=== PATIENT | female | born 1945 | race Caucasian/White ===

== ENCOUNTER → 2019-09-11 16:02 | Outpatient (CLI) | payer MEDICARE, OTHER, SELFPAY ==
[2016-11-29 09:13] VITALS: BMI 32.1
[2019-09-11 17:19] LABS: Absolute Lymphocyte Count 1.76 X10^3/uL (0.83-4.51); Absolute Neutrophil Count 5.4 X10^3/uL (2.0-7.7); Basophil# 0.05 X10^3/uL; Basophil% 0.6 % (0-1); Eosinophil# 0.11 X10^3/uL; Eosinophils% 1.4 % (0-5); Hematocrit 42.1 % (37-47); Hemoglobin 13.7 g/dL (12.0-15.0); Lymphocyte # 1.76 X10^3/ul (4.0); Lymphocyte % 22.2 % (19-41); Mean Corp Hgb Conc 32.5 g/dL (32-36); Mean Corpuscular Volume 82.9 fL (81-99); Mean Platelet Vol. 10.6 fl (6.2-12.0); Monocyte# 0.57 X10^3/uL; Monocyte% 7.2 % (0-10); NRBC Flagged by Analyzer 0 % (0-5); Neutrophil # 5.42 X10^3/uL (2.7-7.7); Neutrophil % 68.2 % (47-70); Platelet Count 247 K/mm3 (150-450); RBC Distribution Width CV 15.2 % (11.6-14.6); RBC Distribution Width SD 45.1 fl (35.1-43.9); Red Blood Count 5.08 M/mm3 (4.2-5.4); White Blood Count 7.9 K/mm3 (4.4-11.0)
[2019-09-11 17:44] LABS: ALB/GLOB Ratio 1.2 RATIO (0.9-2.4); AST(SGOT) 21 U/L (15-37); Alanine Aminotransfer ALT/SGPT 37 U/L (13-56); Albumin, Serum 4.1 g/dL (3.2-5.0); Alkaline Phosphatase 114 U/L (45-117); Anion Gap 7 (5-15); BUN 13 mg/dL (7-18); BUN/Creat Ratio 15.6 RATIO (10-20); Calcium,Total 8.9 mg/dL (8.5-10.1); Chloride 106 mmol/L (98-107); Creatinine, Serum 0.84 mg/dL (0.55-1.02); EST Glomerular Filtration Rate 71 mL/min (>60); Est Glom Filt Rate - Afr Amer 86 mL/min (>60); Globulin 3.5 g/dL (2.2-4.2); Glucose 118 mg/dL (74-106); Potassium 4.4 mmol/L (3.5-5.1); Protein, Total 7.6 g/dL (6.4-8.2); Sodium Level 140 mmol/L (136-145); Thyroid Stim Hormone (TSH) 2.24 uIU/mL (0.358-3.74)
[2019-09-12 09:28] LABS: Hepatitis C Antibody Non-Reactive (Nonreactive); Vitamin D,25 Hydroxy 20.1 ng/mL (29.95-100.01)
== END ==
PROVIDERS: Visit Provider Family Medicine Geriatric Medicine
DX: E55.9 Vitamin D deficiency, unspecified (principal); R53.83 Other fatigue; Z13.89 Encounter for screening for other disorder
CPT/HCPCS: 36415; 80053; 82306; 84443; 85025; 86803

== ENCOUNTER → 2019-09-18 14:42 | Outpatient (CLI) | payer MEDICARE, OTHER, SELFPAY ==
[2016-11-29 09:13] VITALS: BMI 32.1
--- NOTE | 2019-09-18 14:50 | CT_ITS ---
STUDY: CTA OF THE ABDOMINAL AORTA AND BILATERAL LOWER EXTREMITIES REASON FOR EXAM: Female, 73 years old. ANEURYSM OF SPLENIC ARTERY RADIATION DOSAGE (If Supplied By Facility): CTDIvol = ( 22.77 ) mGy, DLP = ( 657.37 ) mGycm TECHNIQUE: Axial CT angiography multi-detector data acquisition was obtained from the to the following intravenous administration of 100 CC ISOVUE 370. Axial images and MIP images were reconstructed from the axial data set. Post-processing of the angiographic images was performed, with multiplanar reformation and 3D reconstruction. Individualized dose optimization techniques were used for this CT. TECHNICAL QUALITY: Good COMPARISON: February 12, 2015 FINDINGS: The lung bases are clear. The liver is normal. No dilated intrahepatic biliary radicles. Previous cholecystectomy The spleen is normal. The pancreas is normal. Both adrenals are normal. The kidneys are normal with no masses, calculi or hydronephrosis The stomach is normal. There is no bowel distention, acute appendicitis or diverticulitis. No constricting lesions are seen in large bowel. The abdominal wall is intact with no hernias. There is no ascites or any free intraperitoneal air. No indication of epiploic appendagitis The aneurysm in the splenic hilum that measured 1.2 cm (outer wall to outer wall) in the last examination of February 12, 2015. The size has not changed since then. The aorta is visualized in its entirety and shows no focal aneurysms. Normal takeoff of the celiac axis, SMA, SHEYLA and renal arteries. There is no retrocrural, retroperitoneal or mesenteric adenopathy. There is a first-degree spondylolisthesis of L4 over L5. No fractures and the disc disease. Mild facet arthrosis at L4-5 and L5-S1. . 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 Has not changed since February 12, 2015. The aorta and its main branches are normal. No acute findings in the abdomen or pelvis. Specifically there is no acute appendicitis or diverticulitis Electronically Signed: Hesham Evans MD at 5:28 EST Tel , Service support ,
== END ==
PROVIDERS: Family Provider Family Medicine Geriatric Medicine; PCP Family Medicine Geriatric Medicine; Referring Provider Family Medicine Geriatric Medicine; Visit Provider Family Medicine Geriatric Medicine
DX: I72.8 Aneurysm of other specified arteries (principal)
CPT/HCPCS: 74175; Q9967; A4216

== ENCOUNTER → 2019-10-03 10:47 | Outpatient (CLI) | payer MEDICARE, OTHER, SELFPAY ==
--- NOTE | 2019-10-03 10:57 | BD_ITS ---
STUDY: DUAL ENERGY X-RAY ABSORPTIOMETRY / DXA REASON FOR EXAM: Female, 73 years old. 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 COMPARISON: None. FINDINGS: Lumbar Spine (L1-L4): g/cm2 (1.364) / T-score (1.6) / Z-score (3.3) Findings are suggestive of normal bone density with a low fracture risk. Left Femur Total: g/cm2 (1.012) / T-score (0.0) / Z-score (1.6) Left Femoral Neck: g/cm2 (0.936) / T-score (-0.7) / Z-score (1.0) Right Femur Total: g/cm2 (0.996) / T-score (-0.1) / Z-score (1.5) Right Femoral Neck: g/cm2 (0.869) / T-score (-1.2) / Z-score (0.6) BD/Dexa Bone Density Study IMPRESSION: The patient is considered osteopenic as outlined below according to World Bipin Organization (WHO) criteria with a low fracture risk. Reference Information: The T-score is the number of standard deviations above or below the standard which is normal for young adults at their peak bone mineral density. The World Health Organization (WHO) interprets the T-scores as follows: Above -1 Normal bone density Between -1 and -2.5 Osteopenia Equal to / or below -2.5 Osteoporosis As a practical clinical guideline, osteopenia may be graded as follows: Mild -1 through -1.5 Moderate -1.6 through -2.0 Severe -2.1 through -2.4 The Z-score is the number of standard deviations above or below age-matched controls. A Z-score of less than -1.5 would be considered abnormal. References: 1. NIH Osteoporosis and Related Bone Diseases http://www.osteo.org 2. International Society for Clinical Densitometry http://www.iscd.org 3. National Osteoporosis Foundation http://www.nof.org Electronically Signed: Omar Albrecht, at 13:28 EST , Service support ,
== END ==
PROVIDERS: PCP Family Medicine Geriatric Medicine; Referring Provider Family Medicine Geriatric Medicine; Visit Provider Family Medicine Geriatric Medicine
DX: Z78.0 Asymptomatic menopausal state (principal)
CPT/HCPCS: 77080

== ENCOUNTER 2019-10-05 07:52 | Day surgery (SDC) | payer MEDICARE, OTHER, SELFPAY ==
[2016-11-29 09:13] VITALS: BMI 32.1
--- NOTE | 2019-10-05 | COLBX_PTH ---
PATIENT: IVAN ROB LOC: EN U#:[id number] AGE/SX: 73/F ROOM: RE10/05/[address]: Dr. Boaz Nieto MD : 1945 BED: DIS: 10/05/2019 SPEC #: [id number] RECD: 10/05/19 12:18 STATUS: HEATHER BEE #: [id number] ROMAN: 10/05/19 00:[address]: Boaz Nieto DEPT: SURGICAL PATHOLOGY RECD BY: Ajit Malik ENTERED: 10/05/19 12:19 SP TYPE: COLON BX OTHR DR: Dr. Gavino Santos MD Tissues: A - Cecum, NOS B - Cecum, NOS C - Cecum, NOS D - Descending colon Procedures: Surgery Specimen Level IV HEADER OPERATION: Colonoscopy - open access (MAC) PRE-OP DIAGNOSIS: Screening TISSUE SUBMITTED: A - Biopsy of cecum polyp, B - Biopsy of second cecum polyp and polypectomy, C - Third cecum polyp, D - Descending colon polyp MICROSCOPIC DIAGNOSIS A. Cecum polyp, biopsy: Fragments of tubular adenoma. B. Biopsy of second cecum polyp and polypectomy: Fragments of tubular adenoma. C. Third cecum polyp, biopsy: Fragments of tubular adenoma. D. Descending colon polyp, biopsy: Tubular adenoma. SJ:clara 10/08/19 MICROSCOPIC DESCRIPTION Slides are reviewed. GROSS DESCRIPTION A - Received in fixative is one container labeled with the patient's name and designated biopsy of cecum polyp. The specimen consists of two irregular fragments of light padilla soft tissue that in aggregate measure 0.7 x 0.3 x 0.1 cm. The specimen is totally submitted in one cassette. B - Received in fixative is one container labeled with the patient's name and designated biopsy of second cecal polyp. The specimen consists of multiple irregular fragments of light padilla soft tissue that in aggregate measure 1 x 0.7 x 0.1 cm. The specimen is totally submitted in one cassette. C - Received in fixative is one container labeled with the patient's name and designated third cecal polyp. The specimen consists of multiple irregular fragments of light padilla soft tissue that in aggregate measure 2 x 0.6 x 0.5 cm. The specimen is totally submitted in one cassette. D - Received in fixative is one container labeled with the patient's name and designated descending colon polyp. The specimen consists of one irregular fragment of light padilla soft tissue that measures 0.5 x 0.5 x 0.1 cm. The specimen is totally submitted in one cassette. / AM:clara 10/05/19 TC:1 CPT: 17784 x4
[2019-10-05 08:04] VITALS: PULSE 97; RESP 15; TEMP 36.4; O2SAT 100; BMI 31.4
[2019-10-05] MEDS: Lactated Ringers 1,000 ML 100 ML IV (08:13)
--- NOTE | 2019-10-05 09:01 | PCM.HP.STD ---
Problem List (1) Personal history of colonic polyps Status: Acute History of Present Illness Date of Admission: 10/05/19 The patient is a 73 year old F who has had a personal history of colon polyps. Her most recent colonoscopy was March 10, 2012. She denies bright red blood per rectum or melena. She has had slight weight gain no unexpected loss. No abdominal pain. No bright red blood per rectum or melena. She is otherwise in stable health. Past Medical History Allergies codeine Allergy (Verified 10/05/19 08:00) Chest tightness latex Allergy (Verified 10/05/19 08:00) Rash prednisone Allergy (Verified 10/05/19 08:00) Unknown Home Medications: Ambulatory Orders Medication Instructions Recorded Cyanocobalamin (Vitamin B-12) 20,000 mcg SL DAILY 10/02/19 [Vitamin B-12] Doxepin HCl 50 mg PO QHS 10/02/19 Fluoxetine [Prozac] 20 mg PO DAILY 10/02/19 Magnesium Oxide [Magnesium] 400 mg PO DAILY 10/02/19 Omeprazole Magnesium [Prilosec Otc] 20 mg PO PRN PRN 10/02/19 Turmeric Root Extract [Turmeric 500 mg PO DAILY 10/02/19 Curcumin] Smoking Status: Former smoker Tobacco Use: Non-smoker Review of Systems Constitutional: Denies: Anorexia HEENT: Denies: Difficulty Swallowing Cardiovascular: Denies: Chest Pain Respiratory: Reports: - - Only mild shortness of breath on climbing stairs. Denies: Shortness of breath at rest Gastrointestinal: Denies: Abdominal Pain, Hematochezia, Melena Endocrine: Reports: - - Slight weight gain VTE Information - Inpt Only VTE Present on Admission: No Patient Problems: Active and Suspected Problems Personal history of colonic polyps (Acute) - Physical Exam Vitals/I&O's: Vital Signs Temp Pulse Resp Pulse Ox 97.5 F L 97 15 100 10/05/19 08:04 10/05/19 08:04 10/05/19 08:04 10/05/19 08:04 Oxygen Delivery Method Room Air Weight: 183 lb 3.266 oz Body Mass Index (BMI) 31.4 General: Alert, Oriented x3, Cooperative, No apparent distress HEENT: Atraumatic Oral: Moist Mucosa Lungs: Clear to auscultation, Normal air movement Cardiovascular: Regular rate, Regular Rhythm Abdomen: Bowel Sounds Present, Soft, Non Tender Psych/Mental Status: Normal Affect Current Medications Lactated Ringer's () 1,000 mls @ 100 mls/hr IV .Q10H CHERELLE Last Admin: 10/05/19 08:13 Dose: 100 mls/hr Documented by: Assessment/Plan All Active Problems Personal history of colonic polyps (Acute) 73-year-old female who presents for a surveillance colonoscopy. Previous colonoscopy was March 10, 2012. She has a previous history of colon polyps. She presents via our open access program. Plan to proceed with a colonoscopy with possible biopsy or polypectomy is indicated. Patient is aware of the technique, benefit, risks, alternatives. We will proceed as noted. Boaz Nieto M.D., F.A.C.S.
[2019-10-05 09:40] VITALS: BP 114/48; BP 174/84; PULSE 80; RESP 18; TEMP 36.4; O2SAT 96
[2019-10-05 09:45] VITALS: BP 113/53; BP 174/84; PULSE 79; RESP 16; O2SAT 98
--- NOTE | 2019-10-05 09:48 | OP.COLON_ITS ---
Patient Name: Glendy Alfaro Procedure Date: 10/05/2019 8:57 AM Date of : 1945 Age: 73 Procedure: Colonoscopy Indications: High risk colon cancer surveillance: Personal history of colonic polyps Providers: Boaz Nieto MD Referring MD: Gavino Santos MD Medicines: See the Anesthesia note for documentation of the administered medications Patient Profile: Last Colonoscopy: March 2012. Complications: No immediate complications. Procedure: Pre-Anesthesia Assessment: - Prior to the procedure, a History and Physical was performed, and patient medications and allergies were reviewed. The patient's tolerance of previous anesthesia was also reviewed. The risks and benefits of the procedure and the sedation options and risks were discussed with the patient. All questions were answered, and informed consent was obtained. Prior Anticoagulants: The patient has taken no previous anticoagulant or antiplatelet agents. ASA Grade Assessment: II - A patient with mild systemic disease. After reviewing the risks and benefits, the patient was deemed in satisfactory condition to undergo the procedure. After I obtained informed consent, the scope was passed under direct vision. Throughout the procedure, the patient's blood pressure, pulse, and oxygen saturations were monitored continuously. The pediatric colonoscope was introduced through the anus and advanced to the cecum, identified by appendiceal orifice and ileocecal valve. The colonoscopy was performed with moderate difficulty due to a redundant colon. The patient tolerated the procedure well. The quality of the bowel preparation was good. The ileocecal valve and the appendiceal orifice were photographed. Scope In: 9:09:20 AM Scope Withdrawal Time 0 hours 17 minutes 24 seconds Scope Out: 9:35:32 AM Total Procedure Duration Time 0 hours 26 minutes 12 seconds Findings: The digital rectal exam findings include non-thrombosed external hemorrhoids, non-thrombosed internal hemorrhoids and internal hemorrhoids that prolapse with straining, but require manual replacement into the anal canal (Grade III). A 13 mm polyp was found in the cecum. The polyp was sessile. Biopsies were taken with a cold forceps for histology. A 6 mm polyp was found in the cecum. The polyp was sessile. The polyp was removed with a hot snare. Resection and retrieval were complete. A 10 mm polyp was found in the cecum. The polyp was sessile. The polyp was removed with a hot snare. Polyp resection was incomplete, and the resected tissue was partially retrieved. A 6 mm polyp was found in the descending colon. The polyp was sessile. The polyp was removed with a hot snare. Resection and retrieval were complete. Multiple diverticula were found in the sigmoid colon. Impression: - Non-thrombosed external hemorrhoids, non-thrombosed internal hemorrhoids and internal hemorrhoids that prolapse with straining, but require manual replacement into the anal canal (Grade III) found on digital rectal exam. - One 13 mm polyp in the cecum. Biopsied. - One 6 mm polyp in the cecum, removed with a hot snare. Resected and retrieved. - One 10 mm polyp in the cecum, removed with a hot snare. Polyp resection was incomplete, and the resected tissue was partially retrieved. - One 6 mm polyp in the descending colon, removed with a hot snare. Resected and retrieved. - Diverticulosis in the sigmoid colon. Recommendation: - Discharge patient to home. - Resume previous diet. - Continue present medications. - Return to my office in 1 week. - Repeat colonoscopy in 3 years for surveillance based on pathology results. Procedure Code(s): --- Professional --- 19321, Colonoscopy, flexible; with removal of tumor(s), polyp(s), or other lesion(s) by snare technique 77415, 59, Colonoscopy, flexible; with biopsy, single or multiple Diagnosis Code(s): --- Professional --- Z86.010, Personal history of colonic polyps K64.2, Third degree hemorrhoids K64.4, Residual hemorrhoidal skin tags D12.0, Benign neoplasm of cecum D12.4, Benign neoplasm of descending colon K57.30, Diverticulosis of large intestine without perforation or abscess without bleeding CPT copyright 2017 [employer]. All rights reserved. The codes documented in this report are preliminary and upon fountain pen turner review may be revised to meet current compliance requirements. Boaz Nieto MD 10/05/2019 9:48:07 AM This report has been signed electronically. Number of Addenda: 0 Note Initiated On: 10/05/2019 8:57 AM
--- NOTE | 2019-10-05 09:48 | OP.CCLET_ITS ---
10/05/2019 Gavino Santos MD [address] [place] [address] Re : Colonoscopy procedure for Glendy Alfaro Dear Dr. Santos This procedure was performed on Saturday, October 05, 2019. My impressions and recommendations are as follows: Impressions : - Non-thrombosed external hemorrhoids, non-thrombosed internal hemorrhoids and internal hemorrhoids that prolapse with straining, but require manual replacement into the anal canal (Grade III) found on digital rectal exam. - One 13 mm polyp in the cecum. Biopsied. - One 6 mm polyp in the cecum, removed with a hot snare. Resected and retrieved. - One 10 mm polyp in the cecum, removed with a hot snare. Polyp resection was incomplete, and the resected tissue was partially retrieved. - One 6 mm polyp in the descending colon, removed with a hot snare. Resected and retrieved. - Diverticulosis in the sigmoid colon. Recommendations : - Discharge patient to home. - Resume previous diet. - Continue present medications. - Return to my office in 1 week. - Repeat colonoscopy in 3 years for surveillance based on pathology results. My findings are described in the full procedure note, which is enclosed. If I can be of further assistance, please feel free to contact me at Doctor phone number(s): Work: . Sincerely, Boaz Nieto MD 10/05/2019 9:48:07 AM This report has been signed electronically.
[2019-10-05 09:50] VITALS: BP 134/66; BP 174/84; PULSE 77; RESP 16; O2SAT 99
[2019-10-05 09:57] VITALS: BP 123/57; BP 174/84; PULSE 78; RESP 18; TEMP 36.6; O2SAT 100
[2019-10-05 10:30] VITALS: BP 174/84
== END 2019-10-05 10:31 | disposition home or self-care (01) ==
LOC: EN 07:53 → AC 07:54
PROVIDERS: Family Provider Family Medicine Geriatric Medicine; PCP Family Medicine Geriatric Medicine; Referring Provider Family Medicine Geriatric Medicine; Visit Provider Surgery
PROC: 0DJD8ZZ Inspection of Lower Intestinal Tract, Via Natural or Artificial Opening Endoscopic (ICD-10-PCS; CPT 45378; principal; 2019-10-05 08:55)
DX: Z12.11 Encounter for screening for malignant neoplasm of colon (principal); D12.0 Benign neoplasm of cecum; D12.4 Benign neoplasm of descending colon; K64.2 Third degree hemorrhoids; K64.4 Residual hemorrhoidal skin tags; K57.30 Diverticulosis of large intestine without perforation or abscess without bleeding; K21.9 Gastro-esophageal reflux disease without esophagitis; F32.9 Major depressive disorder, single episode, unspecified; Z86.010 Personal history of colon polyps; Z87.891 Personal history of nicotine dependence
CPT/HCPCS: 45380; 45385; 88305; J7120; J2405

== ENCOUNTER → 2020-07-03 12:08 | Outpatient (CLI) | payer MEDICARE, OTHER, SELFPAY ==
[2019-10-12 09:59] VITALS: BMI 32.5
[2020-07-03 13:28] LABS: Erythrocyte Sedimentation Rate 6 mm/hr (0-30)
[2020-07-03 13:30] LABS: Absolute Lymphocyte Count 1.56 X10^3/uL (0.83-4.51); Absolute Neutrophil Count 3.4 X10^3/uL (2.0-7.7); Basophil# 0.03 X10^3/uL; Basophil% 0.5 % (0-1); Eosinophil# 0.11 X10^3/uL; Hematocrit 39.4 % (37-47); Hemoglobin 13.6 g/dL (12.0-15.0); Lymphocyte # 1.56 X10^3/ul (4.0); Lymphocyte % 27.8 % (19-41); Mean Corp Hgb Conc 34.5 g/dL (32-36); Mean Corpuscular Hgb 28.8 pg (27.0-32.0); Mean Corpuscular Volume 83.5 fL (81-99); Mean Platelet Vol. 10.5 fl (6.2-12.0); Monocyte# 0.51 X10^3/uL; Monocyte% 9.1 % (0-10); NRBC Flagged by Analyzer 0 % (0-5); Neutrophil # 3.37 X10^3/uL (2.7-7.7); Neutrophil % 59.9 % (47-70); Platelet Count 216 K/mm3 (150-450); RBC Distribution Width CV 14.9 % (11.6-14.6); RBC Distribution Width SD 44.5 fl (35.1-43.9); Red Blood Count 4.72 M/mm3 (4.2-5.4); White Blood Count 5.6 K/mm3 (4.4-11.0)
[2020-07-03 14:06] LABS: CRP 8.85 mg/L (0.0-3.0)
== END ==
PROVIDERS: PCP Family Medicine Geriatric Medicine; Visit Provider Physician Assistant
DX: Z96.652 Presence of left artificial knee joint (principal)
CPT/HCPCS: 36415; 85025; 85652; 86140

== ENCOUNTER → 2020-08-06 09:31 | Outpatient (CLI) | payer MEDICARE, OTHER, SELFPAY ==
[2019-10-12 09:59] VITALS: BMI 32.5
[2020-08-06 12:38] LABS: Absolute Lymphocyte Count 1.47 X10^3/uL (0.83-4.51); Absolute Neutrophil Count 3.1 X10^3/uL (2.0-7.7); Basophil# 0.02 X10^3/uL; Basophil% 0.4 % (0-1); Eosinophil# 0.17 X10^3/uL; Eosinophils% 3.3 % (0-5); Hematocrit 38.2 % (37-47); Hemoglobin 12.5 g/dL (12.0-15.0); Lymphocyte # 1.47 X10^3/ul (4.0); Lymphocyte % 28.3 % (19-41); Mean Corp Hgb Conc 32.7 g/dL (32-36); Mean Corpuscular Hgb 28.5 pg (27.0-32.0); Mean Platelet Vol. 11.1 fl (6.2-12.0); Monocyte# 0.43 X10^3/uL; Monocyte% 8.3 % (0-10); NRBC Flagged by Analyzer 0 % (0-5); Neutrophil # 3.07 X10^3/uL (2.7-7.7); Neutrophil % 58.9 % (47-70); Platelet Count 212 K/mm3 (150-450); RBC Distribution Width CV 15.8 % (11.6-14.6); RBC Distribution Width SD 49.1 fl (35.1-43.9); Red Blood Count 4.39 M/mm3 (4.2-5.4); White Blood Count 5.2 K/mm3 (4.4-11.0)
[2020-08-06 13:00] LABS: Vitamin D,25 Hydroxy 32.9 ng/mL
[2020-08-06 13:22] LABS: ALB/GLOB Ratio 1.3 RATIO (0.9-2.4); AST(SGOT) 23 U/L (15-37); Alanine Aminotransfer ALT/SGPT 48 U/L (13-56); Albumin, Serum 3.9 g/dL (3.2-5.0); Alkaline Phosphatase 110 U/L (45-117); Anion Gap 7 (5-15); BUN 19 mg/dL (7-18); BUN/Creat Ratio 20.9 RATIO (10-20); Calcium,Total 8.8 mg/dL (8.5-10.1); Chloride 110 mmol/L (98-107); Creatinine, Serum 0.91 mg/dL (0.55-1.02); EST Glomerular Filtration Rate 64 mL/min (>60); Est Glom Filt Rate - Afr Amer 78 mL/min (>60); Globulin 3.1 g/dL (2.2-4.2); Glucose 113 mg/dL (74-106); Potassium 3.9 mmol/L (3.5-5.1); Sodium Level 143 mmol/L (136-145); Thyroid Stim Hormone (TSH) 3.02 uIU/mL (0.358-3.74)
== END ==
PROVIDERS: PCP Family Medicine Geriatric Medicine; Visit Provider Family Medicine Geriatric Medicine
DX: E55.9 Vitamin D deficiency, unspecified (principal); R53.83 Other fatigue
CPT/HCPCS: 36415; 80053; 82306; 84443; 85025

== ENCOUNTER → 2020-09-15 09:07 | Outpatient (CLI) | payer MEDICARE, OTHER, SELFPAY ==
[2019-10-12 09:59] VITALS: BMI 32.5
[2020-09-15 11:55] LABS: Absolute Lymphocyte Count 1.61 X10^3/uL (0.83-4.51); Absolute Neutrophil Count 4.1 X10^3/uL (2.0-7.7); Basophil# 0.01 X10^3/uL; Basophil% 0.2 % (0-1); Eosinophils% 1.6 % (0-5); Hematocrit 39.2 % (37-47); Hemoglobin 13.1 g/dL (12.0-15.0); Lymphocyte # 1.61 X10^3/ul (4.0); Lymphocyte % 25.7 % (19-41); Mean Corp Hgb Conc 33.4 g/dL (32-36); Mean Corpuscular Hgb 27.6 pg (27.0-32.0); Mean Corpuscular Volume 82.5 fL (81-99); Mean Platelet Vol. 10.2 fl (6.2-12.0); Monocyte# 0.47 X10^3/uL; Monocyte% 7.5 % (0-10); NRBC Flagged by Analyzer 0 % (0-5); Neutrophil # 4.06 X10^3/uL (2.7-7.7); Neutrophil % 64.7 % (47-70); Platelet Count 223 K/mm3 (150-450); RBC Distribution Width SD 44.7 fl (35.1-43.9); Red Blood Count 4.75 M/mm3 (4.2-5.4); White Blood Count 6.3 K/mm3 (4.4-11.0)
[2020-09-15 12:19] LABS: ALB/GLOB Ratio 1.2 RATIO (0.9-2.4); AST(SGOT) 11 U/L (15-37); Alanine Aminotransfer ALT/SGPT 31 U/L (13-56); Alkaline Phosphatase 104 U/L (45-117); Anion Gap 6 (5-15); BUN 13 mg/dL (7-18); BUN/Creat Ratio 15.3 RATIO (10-20); Calcium,Total 8.9 mg/dL (8.5-10.1); Chloride 112 mmol/L (98-107); Creatinine, Serum 0.85 mg/dL (0.55-1.02); EST Glomerular Filtration Rate 70 mL/min (>60); Est Glom Filt Rate - Afr Amer 85 mL/min (>60); Globulin 3.2 g/dL (2.2-4.2); Glucose 114 mg/dL (74-106); Potassium 3.8 mmol/L (3.5-5.1); Protein, Total 7.2 g/dL (6.4-8.2); Sodium Level 142 mmol/L (136-145); Thyroid Stim Hormone (TSH) 2.73 uIU/mL (0.358-3.74)
[2020-09-15 13:31] LABS: Vitamin D,25 Hydroxy 22.7 ng/mL
== END ==
PROVIDERS: PCP Family Medicine Geriatric Medicine; Visit Provider Family Medicine Geriatric Medicine
DX: I10 Essential (primary) hypertension (principal); E55.9 Vitamin D deficiency, unspecified
CPT/HCPCS: 36415; 80053; 82306; 84443; 85025

== ENCOUNTER → 2020-09-18 07:57 | Outpatient (CLI) | payer MEDICARE, OTHER, SELFPAY ==
[2019-10-12 09:59] VITALS: BMI 32.5
--- NOTE | 2020-09-18 08:10 | CT_ITS ---
STUDY: CTA OF THE ABDOMINAL AORTA AND VISCERAL BRANCHES. REASON FOR EXAM: Female, 74 years old. Splenic artery aneurysm follow up RADIATION DOSAGE (If Supplied By Facility): CTDIvol = ( 16.93 ) mGy, DLP = ( 806.04 ) mGycm TECHNIQUE: Axial CT angiography multi-detector data acquisition was obtained from the to the following intravenous administration of IV 100mL Isovue-370. Axial images and MIP images were reconstructed from the axial data set. Post-processing of the angiographic images was performed, with multiplanar reformation and 3D reconstruction. Individualized dose optimization techniques were used for this CT. TECHNICAL QUALITY: Good COMPARISON: Comparison is made with prior examination dated 09/18/2019. Descriptors of Narrowing: None (0%) Mild (< 50%) Moderate (50-70%) Severe (70-90%) Subtotal/Total Occlusion (90-100%) Non-Evaluable (technically non-diagnostic FINDINGS: Small right pleural effusion. Diffuse fatty infiltration of the liver. The patient is status post cholecystectomy. Stable appearance of the 1.2 cm calcified splenic artery aneurysm in the region of the splenic hilum. Abdominal aorta: No demonstrated narrowing. Minimal atherosclerotic plaque. Celiac and superior mesenteric arteries: No demonstrated narrowing. Inferior mesenteric artery: No demonstrated narrowing. Right renal artery(arteries): No demonstrated narrowing. Left renal artery(arteries): No demonstrated narrowing. Right common iliac artery: No demonstrated narrowing. Minimal nonstenotic calcified atherosclerotic plaques. Right external iliac artery: No demonstrated narrowing. Right internal iliac artery: No demonstrated narrowing. Left common iliac artery: No demonstrated narrowing. Left external iliac artery: No demonstrated narrowing. Left internal iliac artery: No demonstrated narrowing. CT/CTA Abdomen W/WO Contrast IMPRESSION: Stable 1.2 cm partially calcified splenic artery aneurysm. Electronically Signed: Omar Albrecth, at 9:38 EST , Service support ,
== END ==
PROVIDERS: PCP Family Medicine Geriatric Medicine; Referring Provider Family Medicine Geriatric Medicine; Visit Provider Family Medicine Geriatric Medicine
DX: I72.8 Aneurysm of other specified arteries (principal)
CPT/HCPCS: 74175; Q9967

== ENCOUNTER → 2020-10-30 11:58 | Outpatient (CLI) | payer MEDICARE, OTHER, SELFPAY ==
[2020-10-30 10:00] VITALS: BMI 35.2
--- NOTE | 2020-10-30 12:25 | RAD_ITS ---
STUDY: X-RAY - LUMBAR SPINE REASON FOR EXAM: Female, 75 years old. LOW BACK PAIN, SPASMS TECHNIQUE: 3 view(s) of the lumbar spine were obtained. COMPARISON: None FINDINGS: Normal lumbar lordosis. There is no substantial scoliosis. Minimal anterolisthesis of L4 on L5 secondary to facet joint osteoarthritis. There is multilevel endplate spondylosis of the lumbar vertebrae. There is multi-level degenerative disc disease with multi-level disc space narrowing. Moderate amount of fecal material is seen in the colon. RAD/Lumbar Spine 2 or 3 Views IMPRESSION: Degenerative changes of the spine, as detailed above. Electronically Signed: Omar Albrecht MD at 13:15 EST , Service support ,
[2020-10-30 12:29] LABS: Absolute Lymphocyte Count 1.66 X10^3/uL (0.83-4.51); Absolute Neutrophil Count 4.5 X10^3/uL (2.0-7.7); Basophil# 0.04 X10^3/uL; Basophil% 0.6 % (0-1); Eosinophil# 0.11 X10^3/uL; Eosinophils% 1.6 % (0-5); Hematocrit 40.4 % (37-47); Hemoglobin 13.4 g/dL (12.0-15.0); Lymphocyte # 1.66 X10^3/ul (4.0); Lymphocyte % 24.1 % (19-41); Mean Corp Hgb Conc 33.2 g/dL (32-36); Mean Corpuscular Volume 84.5 fL (81-99); Mean Platelet Vol. 10.1 fl (6.2-12.0); Monocyte# 0.56 X10^3/uL; Monocyte% 8.1 % (0-10); NRBC Flagged by Analyzer 0 % (0-5); Neutrophil # 4.49 X10^3/uL (2.7-7.7); Neutrophil % 65.2 % (47-70); Platelet Count 236 K/mm3 (150-450); RBC Distribution Width CV 15.3 % (11.6-14.6); RBC Distribution Width SD 46.2 fl (35.1-43.9); Red Blood Count 4.78 M/mm3 (4.2-5.4); White Blood Count 6.9 K/mm3 (4.4-11.0)
[2020-10-30 12:43] LABS: Anion Gap 6 (5-15); BUN 13 mg/dL (7-18); BUN/Creat Ratio 14.9 RATIO (10-20); Calcium,Total 9.3 mg/dL (8.5-10.1); Chloride 110 mmol/L (98-107); Creatinine, Serum 0.87 mg/dL (0.55-1.02); EST Glomerular Filtration Rate 68 mL/min (>60); Est Glom Filt Rate - Afr Amer 82 mL/min (>60); Glucose 90 mg/dL (74-106); Potassium 4.1 mmol/L (3.5-5.1); Sodium Level 141 mmol/L (136-145)
== END ==
PROVIDERS: PCP Family Medicine Geriatric Medicine; Visit Provider Family Medicine Geriatric Medicine
DX: R10.30 Lower abdominal pain, unspecified (principal); M47.816 Spondylosis without myelopathy or radiculopathy, lumbar region; M51.36 Other intervertebral disc degeneration, lumbar region; M48.061 Spinal stenosis, lumbar region without neurogenic claudication
CPT/HCPCS: 36415; 72100; 80048; 85025

== ENCOUNTER → 2020-11-11 08:18 | Outpatient (CLI) | payer MEDICARE, OTHER, SELFPAY ==
[2020-10-30 10:00] VITALS: BMI 35.2
--- NOTE | 2020-11-11 08:21 | US_ITS ---
STUDY: ABDOMINAL ULTRASOUND - RIGHT UPPER QUADRANT REASON FOR VISIT: Female, 75 years old NON ALCOHOLIC FATTY LIVER TECHNIQUE: Ultrasound evaluation of the right upper quadrant was performed with real-time and static linares-scale imaging. TECHNICAL QUALITY: Adequate. COMPARISON: None. FINDINGS: Liver: The liver measures 14.7 cm. There is increased echogenicity consistent with fatty infiltration. The bile ducts are within normal limits. There is hepatic color flow. The direction of portal flow is hepatopetal. There is no demonstrated mass lesion. Gallbladder: The patient is status post cholecystectomy.. Common Bile Duct (C.B.D.): The common bile duct measures 5 mm. Pancreas: Normal size of the head, body and tail of the pancreas. There is normal echogenicity of the pancreas. There is no demonstrated pancreatic mass or cyst. Right Kidney: Normal size of the right kidney. The right kidney measures 11.7 cm. Normal renal cortex. The right cortex measures 1.6 cm. There is no demonstrated renal mass or cyst. There is no right hydronephrosis. US/Abdomen Limited IMPRESSION: Status post cholecystectomy with fatty infiltration of the liver. Electronically Signed: Michael Mendieta MD at 9:52 EST Tel , Service support ,
--- NOTE | 2020-11-11 08:21 | US_ITS ---
STUDY: ABDOMINAL ULTRASOUND - ELASTOGRAPHY REASON FOR VISIT: Female, 75 years old. Nonalcoholic fatty infiltration of the liver. TECHNIQUE: Liver stiffness measurements were obtained on a [employer] RS 85 ultrasound machine using a CA 1-7 probe following the SRU guidelines. 3 measurements were obtained using a 2-D-SWE method. The IQR/M was 22% suggesting a quality data set. TECHNICAL QUALITY: Adequate. COMPARISON: Comparison is made with prior examination dated 11/11/2020. FINDINGS: Liver: Fatty infiltration of the liver. Median liver stiffness measured 5.3 kPa. US/Elastography Parenchyma/Organ IMPRESSION: Liver stiffness measures 5.3 kPa compatible with F0 -- F1 Metavir score. Electronically Signed: Omar Albrecht MD at 8:39 EDT , Service support ,
--- NOTE | 2020-11-11 15:10 | RAD_ITS ---
STUDY: X-RAY CHEST REASON FOR EXAM: Female, 75 years old. sob X FEW MONTHS TECHNIQUE: PA and lateral views of the chest. COMPARISON: None. FINDINGS: Status post anterior cervical discectomy and fusion lower cervical spine. The lungs are clear and expanded. Elevated right hemidiaphragm. Normal size heart. Normal mediastinum and francine. Normal visualized pulmonary arteries. Normal visualized aortic arch and descending thoracic aorta. Normal visualized thoracic spine. Normal visualized ribs, clavicles, and shoulders. There is no demonstrated abnormality of the visualized soft tissue structures of the upper abdomen. RAD/Chest PA and Lateral IMPRESSION: Normal x-ray examination of the chest. Electronically Signed: Michael Mendieta MD at 15:28 EST Tel , Service support ,
[2020-11-11 16:22] LABS: BNP,B-Type NATRIURETIC PEPTIDE 27.4 pg/mL (0-100)
== END ==
PROVIDERS: Internal Medicine Cardiovascular Disease; PCP Family Medicine Geriatric Medicine; Referring Provider Family Medicine Geriatric Medicine; Visit Provider Family Medicine Geriatric Medicine
DX: K76.0 Fatty (change of) liver, not elsewhere classified (principal); R06.02 Shortness of breath; R06.00 Dyspnea, unspecified
CPT/HCPCS: 36415; 71046; 76705; 76981; 83880

== ENCOUNTER → 2020-11-13 12:56 | Outpatient (CLI) | payer MEDICARE, OTHER, SELFPAY ==
[2020-11-11 13:38] VITALS: BMI 35.2
--- NOTE | 2020-11-13 12:57 | ECHOD_ITS ---
Reason For Study: DYSPNEA/SOB Procedure This was a 2D Doppler, Color Flow transthoracic echocardiogram. Exam performed in department. Left Ventricle Normal LV size. Left ventricular systolic function is normal. The estimated ejection fraction is 65 %. Stage 1 diastolic dysfunction. No regional wall motion abnormalities noted. Right Ventricle Normal RV size. Normal systolic function. Atria Normal left atrium. Mitral Valve Normal mitral valve. Tricuspid Valve Normal tricuspid valve. Aortic Valve The aortic valve is not well visualized. Pulmonic Valve The pulmonic valve is not well visualized. Great Vessels Normal aortic root. The pulmonary artery is normal size. Normal inferior vena cava. Pericardium/Pleural No pericardial effusion. MMode/2D Measurements & Calculations LVIDd: 4.8 cm IVSd: 1.0 cm Ao root diam: 2.6 cm LVIDs: 3.4 cm LVPWd: 1.0 cm RVDd: 2.7 cm FS: 28.3 % LAV(MOD-bp): 41.1 ml LVAd ap4: 20.0 cm2 SV(MOD-sp4): 31.5 ml LAV(MOD-bp) Indexed: 20.8 ml/m2 EDV(MOD-sp4): 46.8 ml LAV(MOD-sp2): 40.5 ml EDV(sp4-el): 47.7 ml LAV(MOD-sp4): 37.6 ml LVAs ap4: 10.3 cm2 ESV(MOD-sp4): 15.3 ml ESV(sp4-el): 15.5 ml EF(MOD-sp4): 67.3 % EF(sp4-el): 67.6 % SV(sp4-el): 32.3 ml LA A4 area: 14.7 cm2 LA dimension(2D): 4.4 cm RA A4 area: 12.0 cm2 Time Measurements MV dec time: 0.24 sec Doppler Measurements & Calculations MV E max adi: 105.2 cm/sec Lat Peak E' Adi: 6.4 cm/sec Med Peak E' Adi: 9.4 cm/sec MV A max adi: 117.1 cm/sec E/E' lat: 16.5 E/E' med: 11.2 MV E/A: 0.90 Ao V2 max: 167.1 cm/sec LV V1 max: 147.7 cm/sec PA V2 max: 131.0 cm/sec Ao max P.2 mmHg LV V1 max P.7 mmHg Interpretation Summary Normal LV size. Left ventricular systolic function is normal. The estimated ejection fraction is 65 %. Stage 1 diastolic dysfunction. Contrast injection was performed. Ordering Physician: Saleem Santos Referring Physician: Gavino Santos Chi Performed By: Jos, Ayanna, RDCS, RVT
== END ==
PROVIDERS: PCP Family Medicine Geriatric Medicine; Visit Provider Internal Medicine Cardiovascular Disease
DX: I49.1 Atrial premature depolarization (principal)
CPT/HCPCS: 93306

== ENCOUNTER → 2021-03-16 10:24 | Outpatient (CLI) | payer MEDICARE, OTHER, SELFPAY ==
[2021-02-11 09:36] VITALS: BMI 36.0
[2021-03-16 12:16] LABS: Absolute Lymphocyte Count 1.52 X10^3/uL (0.83-4.51); Absolute Neutrophil Count 3.6 X10^3/uL (2.0-7.7); Basophil# 0.03 X10^3/uL; Basophil% 0.5 % (0-1); Eosinophils% 1.7 % (0-5); Hematocrit 40.5 % (37-47); Hemoglobin 13.4 g/dL (12.0-15.0); Lymphocyte # 1.52 X10^3/ul (0.83-4.51); Lymphocyte % 26.2 % (19-41); Mean Corp Hgb Conc 33.1 g/dL (32-36); Mean Corpuscular Hgb 28.2 pg (27.0-32.0); Mean Corpuscular Volume 85.1 fL (81-99); Mean Platelet Vol. 10.5 fl (6.2-12.0); Monocyte# 0.51 X10^3/uL; Monocyte% 8.8 % (0-10); NRBC Flagged by Analyzer 0 % (0-5); Neutrophil # 3.58 X10^3/uL (2.7-7.7); Neutrophil % 61.8 % (47-70); Platelet Count 233 K/mm3 (150-450); RBC Distribution Width CV 14.6 % (11.6-14.6); RBC Distribution Width SD 44.7 fl (35.1-43.9); Red Blood Count 4.76 M/mm3 (4.2-5.4); White Blood Count 5.8 K/mm3 (4.4-11.0)
[2021-03-16 12:41] LABS: ALB/GLOB Ratio 1.1 RATIO (0.9-2.4); AST(SGOT) 23 U/L (15-37); Alanine Aminotransfer ALT/SGPT 40 U/L (13-56); Albumin, Serum 3.7 g/dL (3.2-5.0); Alkaline Phosphatase 118 U/L (45-117); Anion Gap 8 (5-15); BUN 14 mg/dL (7-18); BUN/Creat Ratio 15.9 RATIO (10-20); Calcium,Total 8.8 mg/dL (8.5-10.1); Chloride 108 mmol/L (98-107); Creatinine, Serum 0.88 mg/dL (0.55-1.02); EST Glomerular Filtration Rate 67 mL/min (>60); Est Glom Filt Rate - Afr Amer 81 mL/min (>60); Globulin 3.4 g/dL (2.2-4.2); Glucose 147 mg/dL (74-106); Potassium 3.6 mmol/L (3.5-5.1); Protein, Total 7.1 g/dL (6.4-8.2); Sodium Level 140 mmol/L (136-145); Thyroid Stim Hormone (TSH) 3.19 uIU/mL (0.358-3.74)
[2021-03-16 15:45] LABS: Vitamin D,25 Hydroxy 25.8 ng/mL
== END ==
PROVIDERS: PCP Family Medicine Geriatric Medicine; Visit Provider Family Medicine Geriatric Medicine
DX: E55.9 Vitamin D deficiency, unspecified (principal); I10 Essential (primary) hypertension
CPT/HCPCS: 36415; 80053; 82306; 84443; 85025

== ENCOUNTER → 2021-05-20 11:31 | Outpatient (CLI) | payer MEDICARE, OTHER, SELFPAY ==
[2021-05-20 13:12] LABS: Absolute Lymphocyte Count 1.52 X10^3/uL (0.83-4.51); Absolute Neutrophil Count 4.3 X10^3/uL (2.0-7.7); Basophil# 0.03 X10^3/uL; Basophil% 0.5 % (0-1); Eosinophil# 0.11 X10^3/uL; Eosinophils% 1.7 % (0-5); Hematocrit 40.3 % (37-47); Hemoglobin 12.9 g/dL (12.0-15.0); Lymphocyte # 1.52 X10^3/ul (0.83-4.51); Lymphocyte % 23.3 % (19-41); Mean Corpuscular Hgb 27.9 pg (27.0-32.0); Mean Platelet Vol. 10.9 fl (6.2-12.0); Monocyte# 0.53 X10^3/uL; Monocyte% 8.1 % (0-10); NRBC Flagged by Analyzer 0 % (0-5); Neutrophil # 4.27 X10^3/uL (2.7-7.7); Neutrophil % 65.6 % (47-70); Platelet Count 240 K/mm3 (150-450); RBC Distribution Width CV 15.9 % (11.6-14.6); RBC Distribution Width SD 50.3 fl (35.1-43.9); Red Blood Count 4.63 M/mm3 (4.2-5.4); White Blood Count 6.5 K/mm3 (4.4-11.0)
[2021-05-20 13:44] LABS: International Normalized Ratio 1.1; Prothrombin Time (Protime)PT. 13.2 SECONDS (11.7-14.9)
[2021-05-20 13:45] LABS: Partial Thromboplast Time 29.2 Seconds (24.1-36.2)
[2021-05-20 13:59] LABS: Hemoglobin A1c 4.7 % (3.8-5.6)
[2021-05-20 14:06] LABS: Vitamin B12 594 pg/mL (211-911); Vitamin D,25 Hydroxy 60.3 ng/mL
[2021-05-20 14:25] LABS: ALB/GLOB Ratio 1.1 RATIO (0.9-2.4); AST(SGOT) 33 U/L (15-37); Alanine Aminotransfer ALT/SGPT 45 U/L (13-56); Albumin, Serum 3.7 g/dL (3.2-5.0); Alkaline Phosphatase 126 U/L (45-117); Anion Gap 6 (5-15); BUN 19 mg/dL (7-18); Calcium,Total 9.1 mg/dL (8.5-10.1); Chloride 108 mmol/L (98-107); Cholesterol 201 mg/dL (200); Creatinine, Serum 0.83 mg/dL (0.55-1.02); EST Glomerular Filtration Rate 72 mL/min (>60); Est Glom Filt Rate - Afr Amer 87 mL/min (>60); Ferritin 160 ng/mL (8-252); Globulin 3.4 g/dL (2.2-4.2); Glucose 98 mg/dL (74-106); High Density Lipoprotein 46 mg/dL; Iron 54 ug/dL (50-170); Potassium 4.1 mmol/L (3.5-5.1); Protein, Total 7.1 g/dL (6.4-8.2); Sodium Level 140 mmol/L (136-145); Thyroid Stim Hormone (TSH) 3.62 uIU/mL (0.358-3.74); Triglycerides 205 mg/dL; Very Low Density Lipoprotein 41 mg/dL (5-40)
[2021-05-27 09:09] LABS: Vitamin B1, Thiamine 128.9 nmol/L (66.5-200.0)
[2021-05-27 12:20] LABS: H. PYLORI STOOL AG Negative (Negative)
== END ==
PROVIDERS: PCP Family Medicine Geriatric Medicine
DX: E61.1 Iron deficiency (principal); E78.5 Hyperlipidemia, unspecified; E55.9 Vitamin D deficiency, unspecified; E51.9 Thiamine deficiency, unspecified; R73.9 Hyperglycemia, unspecified; R79.1 Abnormal coagulation profile
CPT/HCPCS: 36415; 80053; 80061; 82306; 82607; 82728; 83036; 83540; 84425; 84439; 84443; 85025; 85610; 85730

== ENCOUNTER → 2021-06-18 20:00 | Outpatient (CLI) | payer MEDICARE, OTHER, SELFPAY | PROVIDERS: PCP Family Medicine Geriatric Medicine | DX: G47.33 Obstructive sleep apnea (adult) (pediatric) (principal) | CPT/HCPCS: 95811 ==

== ENCOUNTER 2021-09-16 09:14 | Outpatient (CLI) | payer MEDICARE, OTHER, SELFPAY ==
[2021-09-16 12:39] LABS: Absolute Lymphocyte Count 1.52 X10^3/uL (0.83-4.51); Absolute Neutrophil Count 3.2 X10^3/uL (2.0-7.7); Basophil# 0.03 X10^3/uL; Basophil% 0.6 % (0-1); Eosinophil# 0.13 X10^3/uL; Eosinophils% 2.4 % (0-5); Hematocrit 40.2 % (37-47); Hemoglobin 12.8 g/dL (12.0-15.0); Lymphocyte # 1.52 X10^3/ul (0.83-4.51); Lymphocyte % 27.9 % (19-41); Mean Corp Hgb Conc 31.8 g/dL (32-36); Mean Corpuscular Hgb 26.8 pg (27.0-32.0); Mean Corpuscular Volume 84.1 fL (81-99); Mean Platelet Vol. 12.2 fl (6.2-12.0); Monocyte# 0.54 X10^3/uL; Monocyte% 9.9 % (0-10); NRBC Flagged by Analyzer 0 % (0-5); Neutrophil # 3.22 X10^3/uL (2.7-7.7); Platelet Count 263 K/mm3 (150-450); RBC Distribution Width CV 17.2 % (11.6-14.6); RBC Distribution Width SD 52.5 fl (35.1-43.9); Red Blood Count 4.78 M/mm3 (4.2-5.4); White Blood Count 5.5 K/mm3 (4.4-11.0)
[2021-09-16 13:01] LABS: ALB/GLOB Ratio 1.2 RATIO (0.9-2.4); AST(SGOT) 22 U/L (15-37); Alanine Aminotransfer ALT/SGPT 35 U/L (13-56); Albumin, Serum 3.9 g/dL (3.2-5.0); Alkaline Phosphatase 126 U/L (45-117); Anion Gap 6 (5-15); BUN 13 mg/dL (7-18); BUN/Creat Ratio 16.9 RATIO (10-20); Calcium,Total 9.1 mg/dL (8.5-10.1); Chloride 111 mmol/L (98-107); Creatinine, Serum 0.77 mg/dL (0.55-1.02); EST Glomerular Filtration Rate 78 mL/min (>60); Est Glom Filt Rate - Afr Amer 94 mL/min (>60); Globulin 3.2 g/dL (2.2-4.2); Glucose 95 mg/dL (74-106); Potassium 3.7 mmol/L (3.5-5.1); Protein, Total 7.1 g/dL (6.4-8.2); Sodium Level 143 mmol/L (136-145); Thyroid Stim Hormone (TSH) 2.71 uIU/mL (0.358-3.74)
== END 2021-09-16 23:59 | disposition short-term general hospital (02) ==
LOC: POLAB3 09:16
PROVIDERS: PCP Family Medicine Geriatric Medicine; Visit Provider Family Medicine Geriatric Medicine
DX: E55.9 Vitamin D deficiency, unspecified (principal); I10 Essential (primary) hypertension
CPT/HCPCS: 36415; 80053; 82306; 84443; 85025

== ENCOUNTER → 2022-02-10 | Outpatient (CLI) | payer MEDICARE, OTHER, SELFPAY ==
[2022-02-10 12:31] LABS: ALB/GLOB Ratio 1.1 RATIO (0.9-2.4); AST(SGOT) 94 U/L (15-37); Alanine Aminotransfer ALT/SGPT 208 U/L (13-56); Albumin, Serum 3.6 g/dL (3.2-5.0); Alkaline Phosphatase 237 U/L (45-117); Anion Gap 5 (5-15); BUN 17 mg/dL (7-18); BUN/Creat Ratio 26.8 RATIO (10-20); Chloride 108 mmol/L (98-107); Creatinine, Serum 0.63 mg/dL (0.55-1.02); EST Glomerular Filtration Rate 97 mL/min (>60); Est Glom Filt Rate - Afr Amer 118 mL/min (>60); Globulin 3.3 g/dL (2.2-4.2); Glucose 95 mg/dL (74-106); Potassium 4.2 mmol/L (3.5-5.1); Protein, Total 6.9 g/dL (6.4-8.2); Sodium Level 139 mmol/L (136-145)
[2022-02-10 13:10] LABS: Hepatitis B Surface Antibody Non-Reactive; Hepatitis C Antibody Non-Reactive (Nonreactive)
[2022-02-11 11:08] LABS: Hepatitis A AB, Total Negative (Negative)
== END | disposition home or self-care (01) ==
LOC: POLAB3 11:26
PROVIDERS: PCP Family Medicine Geriatric Medicine; Visit Provider Family Medicine Geriatric Medicine
DX: R74.8 Abnormal levels of other serum enzymes (principal)
CPT/HCPCS: 36415; 80053; 86706; 86708; 86803

== ENCOUNTER → 2022-02-17 | Outpatient (CLI) | payer MEDICARE, OTHER, SELFPAY ==
--- NOTE | 2022-02-17 09:18 | EKG12_ITS ---
Test Reason : PRE OP Blood Pressure : / mmHG Vent. Rate : 083 BPM Atrial Rate : 083 BPM P-R Int : 138 ms QRS Dur : 068 ms QT Int : 366 ms P-R-T Axes : 000 -01 037 degrees QTc Int : 430 ms Normal sinus rhythm Normal ECG Confirmed by JOSEPHINE BLUM, VITOR ([id number]), web editor JOAQUIN BONILLA ([id number]) on 02/18/2022 10:17:36 AM Referred By: Delvis Brandt Confirmed By:VITOR BURTON MD
[2022-02-17 10:30] LABS: Hematocrit 40.1 % (37-47); Hemoglobin 13.7 g/dL (12.0-15.0); Mean Corp Hgb Conc 34.2 g/dL (32-36); Mean Corpuscular Hgb 29.8 pg (27.0-32.0); Mean Corpuscular Volume 87.4 fL (81-99); Mean Platelet Vol. 10.5 fl (6.2-12.0); Platelet Count 277 K/mm3 (150-450); RBC Distribution Width CV 15.4 % (11.6-14.6); RBC Distribution Width SD 48.2 fl (35.1-43.9); Red Blood Count 4.59 M/mm3 (4.2-5.4); White Blood Count 7.4 K/mm3 (4.4-11.0)
[2022-02-17 10:59] LABS: Anion Gap 4 (5-15); BUN 15 mg/dL (7-18); BUN/Creat Ratio 24.5 RATIO (10-20); Calcium,Total 8.9 mg/dL (8.5-10.1); Chloride 106 mmol/L (98-107); Creatinine, Serum 0.61 mg/dL (0.55-1.02); EST Glomerular Filtration Rate 102 mL/min (>60); Est Glom Filt Rate - Afr Amer 123 mL/min (>60); Glucose 91 mg/dL (74-106); Potassium 3.9 mmol/L (3.5-5.1); Sodium Level 140 mmol/L (136-145)
== END | disposition home or self-care (01) ==
PROVIDERS: PCP Family Medicine Geriatric Medicine; Referring Provider Orthopaedic Surgery; Visit Provider Orthopaedic Surgery
DX: Z01.810 Encounter for preprocedural cardiovascular examination (principal)
CPT/HCPCS: 36415; 80048; 85027; 93005

== ENCOUNTER → 2022-02-23 | Outpatient (CLI) | payer MEDICARE, OTHER, SELFPAY ==
--- NOTE | 2022-02-23 08:24 | US_ITS ---
STUDY: ABDOMINAL ULTRASOUND - RIGHT UPPER QUADRANT REASON FOR VISIT: Female, 76 years old. ABDOMEN PAIN ALT -- ABNORMAL LABS TECHNIQUE: Ultrasound evaluation of the right upper quadrant was performed with real-time and static linares-scale imaging. TECHNICAL QUALITY: Adequate. COMPARISON: None. FINDINGS: Liver: There is normal echogenicity of the liver. The bile ducts are within normal limits. There is hepatic color flow. The direction of portal flow is hepatopetal. There is no demonstrated mass lesion. Gallbladder: The patient is status post cholecystectomy. Common Bile Duct (C.B.D.): The common bile duct measures ( in mm): 3.8 Pancreas: Normal size of the head, body of the pancreas. There is normal echogenicity of the pancreas. There is no demonstrated pancreatic mass or cyst. Right Kidney: Normal size of the right kidney. The right kidney measures 10.1 cm. . Normal renal cortex. There is no demonstrated renal mass or cyst. There is no right hydronephrosis. Aorta: It is not visualized. There is too much overlying bowel gas. . US/Abdomen Limited IMPRESSION: No acute findings. Note: Renal size measurements and size measurements of other organs etc may vary depending on modality and explosives mixer operator dependent variations in measurements. (i.e. Measuring a kidney on an US does not correlate with an exact same measurement on a CT.) Electronically Signed: Edward Sommers MD at 16:39 EDT ,
== END | disposition home or self-care (01) ==
LOC: US 08:23
PROVIDERS: PCP Family Medicine Geriatric Medicine; Referring Provider Family Medicine Geriatric Medicine; Visit Provider Family Medicine Geriatric Medicine
DX: R74.8 Abnormal levels of other serum enzymes (principal)
CPT/HCPCS: 76705

== ENCOUNTER → 2022-03-15 | Outpatient (CLI) | payer MEDICARE, OTHER, SELFPAY ==
[2022-03-15 13:01] LABS: ALB/GLOB Ratio 1.1 RATIO (0.9-2.4); AST(SGOT) 28 U/L (15-37); Alanine Aminotransfer ALT/SGPT 85 U/L (13-56); Albumin, Serum 3.5 g/dL (3.2-5.0); Alkaline Phosphatase 185 U/L (45-117); Anion Gap 8 (5-15); BUN 17 mg/dL (7-18); BUN/Creat Ratio 24.8 RATIO (10-20); Calcium,Total 8.7 mg/dL (8.5-10.1); Chloride 106 mmol/L (98-107); Creatinine, Serum 0.69 mg/dL (0.55-1.02); EST Glomerular Filtration Rate 89 mL/min (>60); Est Glom Filt Rate - Afr Amer 108 mL/min (>60); Globulin 3.1 g/dL (2.2-4.2); Glucose 84 mg/dL (74-106); Protein, Total 6.6 g/dL (6.4-8.2); Sodium Level 140 mmol/L (136-145)
== END | disposition home or self-care (01) ==
LOC: POLAB3 11:15
PROVIDERS: PCP Family Medicine Geriatric Medicine; Visit Provider Family Medicine Geriatric Medicine
DX: R74.8 Abnormal levels of other serum enzymes (principal)
CPT/HCPCS: 36415; 80053

== ENCOUNTER → 2022-03-17 | Outpatient (CLI) | payer MEDICARE, OTHER, SELFPAY ==
[2022-03-17 12:29] LABS: Absolute Lymphocyte Count 1.62 X10^3/uL (0.83-4.51); Absolute Neutrophil Count 5.2 X10^3/uL (2.0-7.7); Basophil# 0.02 X10^3/uL; Basophil% 0.3 % (0-1); Eosinophil# 0.13 X10^3/uL; Eosinophils% 1.7 % (0-5); Hematocrit 38.1 % (37-47); Hemoglobin 12.9 g/dL (12.0-15.0); Lymphocyte # 1.62 X10^3/ul (0.83-4.51); Lymphocyte % 21.2 % (19-41); Mean Corp Hgb Conc 33.9 g/dL (32-36); Mean Corpuscular Hgb 30.1 pg (27.0-32.0); Mean Platelet Vol. 11.1 fl (6.2-12.0); Monocyte# 0.61 X10^3/uL; NRBC Flagged by Analyzer 0 % (0-5); Neutrophil # 5.24 X10^3/uL (2.7-7.7); Neutrophil % 68.4 % (47-70); Platelet Count 283 K/mm3 (150-450); RBC Distribution Width CV 15.2 % (11.6-14.6); RBC Distribution Width SD 48.7 fl (35.1-43.9); Red Blood Count 4.28 M/mm3 (4.2-5.4); White Blood Count 7.7 K/mm3 (4.4-11.0)
[2022-03-17 12:54] LABS: Vitamin D,25 Hydroxy 37.7 ng/mL
[2022-03-17 13:10] LABS: ALB/GLOB Ratio 1.1 RATIO (0.9-2.4); AST(SGOT) 24 U/L (15-37); Alanine Aminotransfer ALT/SGPT 63 U/L (13-56); Albumin, Serum 3.3 g/dL (3.2-5.0); Alkaline Phosphatase 159 U/L (45-117); Anion Gap 4 (5-15); BUN 15 mg/dL (7-18); BUN/Creat Ratio 25.6 RATIO (10-20); Calcium,Total 8.7 mg/dL (8.5-10.1); Chloride 107 mmol/L (98-107); Creatinine, Serum 0.59 mg/dL (0.55-1.02); EST Glomerular Filtration Rate 106 mL/min (>60); Est Glom Filt Rate - Afr Amer 129 mL/min (>60); Glucose 87 mg/dL (74-106); Potassium 4.1 mmol/L (3.5-5.1); Protein, Total 6.3 g/dL (6.4-8.2); Sodium Level 138 mmol/L (136-145); Thyroid Stim Hormone (TSH) 3.67 uIU/mL (0.358-3.74); Uric Acid 4.5 mg/dL (2.6-6.0)
== END | disposition home or self-care (01) ==
LOC: POLAB3 09:09
PROVIDERS: PCP Family Medicine Geriatric Medicine; Visit Provider Family Medicine Geriatric Medicine
DX: I10 Essential (primary) hypertension (principal); M10.9 Gout, unspecified; E55.9 Vitamin D deficiency, unspecified
CPT/HCPCS: 36415; 80053; 82306; 84443; 84550; 85025

== ENCOUNTER → 2022-04-27 | Outpatient (CLI) | payer MEDICARE, OTHER, SELFPAY ==
[2022-04-27 17:16] LABS: ALB/GLOB Ratio 1.2 RATIO (0.9-2.4); AST(SGOT) 32 U/L (15-37); Alanine Aminotransfer ALT/SGPT 53 U/L (13-56); Albumin, Serum 3.7 g/dL (3.2-5.0); Alkaline Phosphatase 133 U/L (45-117); Anion Gap 6 (5-15); BUN 16 mg/dL (7-18); BUN/Creat Ratio 19.9 RATIO (10-20); Calcium,Total 8.5 mg/dL (8.5-10.1); Chloride 108 mmol/L (98-107); EST Glomerular Filtration Rate 74 mL/min (>60); Est Glom Filt Rate - Afr Amer 89 mL/min (>60); Globulin 3.1 g/dL (2.2-4.2); Glucose 100 mg/dL (74-106); Potassium 4.4 mmol/L (3.5-5.1); Protein, Total 6.8 g/dL (6.4-8.2); Sodium Level 140 mmol/L (136-145)
== END | disposition home or self-care (01) ==
LOC: LAB 05-17 10:02
PROVIDERS: PCP Family Medicine Geriatric Medicine; Visit Provider Family Medicine Geriatric Medicine
DX: R74.8 Abnormal levels of other serum enzymes (principal)
CPT/HCPCS: 36415; 80053

== ENCOUNTER → 2022-07-31 | Outpatient (CLI) | payer MEDICARE, OTHER, SELFPAY ==
--- NOTE | 2022-07-31 09:15 | MRI_ITS ---
HISTORY: Neck pain, evaluate stenosis, prior fusion 8 years ago. TECHNIQUE: Multiplanar and multisequence MR images of the cervical spine were obtained without contrast. 262 images. COMPARISON: XR 07/08/2014, CT 12/17/2013. FINDINGS: VERTEBRAE: Vertebral body heights maintained. Small odontoid cysts. Mild degenerative bone marrow endplate changes at C3-4 and C6-7. Artifact from anterior spinal fusion hardware and interbody fusion material at C4-6. VERTEBRAL ALIGNMENT: No anterior or posterior subluxation. SPINAL CORD: Cervical cord signal and morphology within normal limits. SOFT TISSUES: No prevertebral fluid collection. INTERVERTEBRAL DISCS: C2-3: Mild posterior disc protrusion with uncovertebral and facet arthropathy resulting in moderate central canal stenosis, abutment of the dorsal cord, and no significant foraminal narrowing . C3-4: Moderate posterior disc bulge osteophyte complex with uncovertebral and facet arthropathy resulting in abutment of the ventral cord, mild-moderate central canal stenosis, and mild-moderate bilateral foraminal narrowing. C4-5: Postoperative changes with fusion across the intervertebral disc space. No significant posterior disc protrusion, central canal stenosis, or foraminal narrowing. C5-6: Postoperative changes with fusion across the intervertebral disc space. No significant posterior disc protrusion or central canal stenosis. Residual degenerative changes of the posterior elements with mild bilateral foraminal narrowing. C6-7: Mild posterior disc bulge osteophyte complex eccentric to the left with uncovertebral and facet arthropathy resulting in probable traversing left nerve root impingement, mild central canal stenosis, and left foraminal narrowing. C7-T1: Mild posterior disc protrusion resulting in mild central canal stenosis. No significant foraminal narrowing. MRI/Spine Cervical (Routine) IMPRESSION: ACDF C4-6 with degenerative disc disease above and below the level of fusion resulting in spinal canal stenosis and foraminal narrowing as above. Electronically Signed: Yulisa Carvajal MD at 10:20 EST ,
== END | disposition home or self-care (01) ==
LOC: MRI 08:44
PROVIDERS: PCP Family Medicine Geriatric Medicine; Visit Provider Orthopaedic Surgery
DX: M48.02 Spinal stenosis, cervical region (principal); M47.22 Other spondylosis with radiculopathy, cervical region
CPT/HCPCS: 72141

== ENCOUNTER → 2022-09-20 | Outpatient (CLI) | payer MEDICARE, OTHER, SELFPAY ==
[2022-09-20 13:06] LABS: Absolute Lymphocyte Count 1.58 X10^3/uL (0.83-4.51); Absolute Neutrophil Count 3.3 X10^3/uL (2.0-7.7); Basophil# 0.04 X10^3/uL; Basophil% 0.7 % (0-1); Eosinophil# 0.16 X10^3/uL; Eosinophils% 2.8 % (0-5); Hemoglobin 14.5 g/dL (12.0-15.0); Lymphocyte # 1.58 X10^3/ul (0.83-4.51); Lymphocyte % 28.1 % (19-41); Mean Corp Hgb Conc 33.7 g/dL (32-36); Mean Corpuscular Hgb 29.4 pg (27.0-32.0); Mean Corpuscular Volume 87.2 fL (81-99); Mean Platelet Vol. 11.1 fl (6.2-12.0); Monocyte% 8.9 % (0-10); NRBC Flagged by Analyzer 0 % (0-5); Neutrophil # 3.34 X10^3/uL (2.7-7.7); Neutrophil % 59.3 % (47-70); Platelet Count 233 K/mm3 (150-450); RBC Distribution Width SD 47.2 fl (35.1-43.9); Red Blood Count 4.93 M/mm3 (4.2-5.4); White Blood Count 5.6 K/mm3 (4.4-11.0)
[2022-09-20 13:20] LABS: Vitamin D,25 Hydroxy 27.8 ng/mL
[2022-09-20 13:25] LABS: ALB/GLOB Ratio 1.1 RATIO (0.9-2.4); AST(SGOT) 53 U/L (15-37); Alanine Aminotransfer ALT/SGPT 69 U/L (13-56); Albumin, Serum 3.7 g/dL (3.2-5.0); Alkaline Phosphatase 134 U/L (45-117); Anion Gap 9 (5-15); BUN 14 mg/dL (7-18); BUN/Creat Ratio 22.6 RATIO (10-20); Calcium,Total 8.8 mg/dL (8.5-10.1); Chloride 107 mmol/L (98-107); Creatinine, Serum 0.62 mg/dL (0.55-1.02); EST Glomerular Filtration Rate 100 mL/min (>60); Est Glom Filt Rate - Afr Amer 121 mL/min (>60); Globulin 3.3 g/dL (2.2-4.2); Glucose 58 mg/dL (74-106); Potassium 3.8 mmol/L (3.5-5.1); Sodium Level 143 mmol/L (136-145); Uric Acid 4.2 mg/dL (2.6-6.0)
== END | disposition home or self-care (01) ==
PROVIDERS: PCP Family Medicine Geriatric Medicine; Visit Provider Family Medicine Geriatric Medicine
DX: R53.83 Other fatigue (principal); M10.9 Gout, unspecified; E55.9 Vitamin D deficiency, unspecified
CPT/HCPCS: 36415; 80053; 82306; 84443; 84550; 85025

== ENCOUNTER → 2022-09-24 | Outpatient (CLI) | payer MEDICARE, OTHER, SELFPAY ==
--- NOTE | 2022-09-24 13:50 | CT_ITS ---
STUDY: CTA ABDOMEN AND PELVIS WITH CONTRAST REASON FOR EXAM: Female, 76 years old. SPLENIC ANEURYSM RADIATION DOSAGE (If Supplied By Facility): CTDIvol = ( 25.65 ) mGy, DLP = ( 844.55 ) mGycm TECHNIQUE: Transaxial images were obtained from the dome of the diaphragm to the symphysis pubis without oral contrast. IV 100mL Isovue-[id number] was administered. Sagittal and coronal images were reconstructed. Individualized dose optimization techniques were used for this CT. COMPARISON: Comparison is made with prior study dated 09/18/2020. FINDINGS: The visualized lung bases are unremarkable. The visualized portions of the heart are within normal limits. Normal liver. The patient is status post cholecystectomy. Normal spleen. Normal pancreas. Normal bilateral adrenal glands. Normal right kidney. Stable 1.7 cm cyst in the mid lateral portion of the left kidney. Normal visualized stomach. Normal small intestine. There are multiple colonic diverticula consistent with diverticulosis. There is non-visualization of the appendix. There is scattered atherosclerotic calcification of the abdominal aorta. 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 Normal inferior vena cava. Normal retroperitoneum. Normal urinary bladder. There is absence of the uterus consistent with a prior hysterectomy. Normal abdominal wall. Minimal anterior listhesis of L4 on L5. CT/CT ANGIO ABD&PEL W/O&W/DYE IMPRESSION: Stable 1.2 cm partially calcified splenic artery aneurysm. Status post cholecystectomy. 1.7 cm cyst in the mid lateral portion of the left kidney. Electronically Signed: Omar Albrecht MD at 15:02 EST ,
== END | disposition home or self-care (01) ==
PROVIDERS: PCP Family Medicine Geriatric Medicine; Referring Provider Family Medicine Geriatric Medicine; Visit Provider Family Medicine Geriatric Medicine
DX: I72.8 Aneurysm of other specified arteries (principal)
CPT/HCPCS: 74174; Q9967

== ENCOUNTER → 2022-09-28 | Outpatient (CLI) | payer MEDICARE, OTHER, SELFPAY | END | disposition home or self-care (01) | LOC: POLAB3 10:40 | PROVIDERS: PCP Family Medicine Geriatric Medicine; Visit Provider Family Medicine Geriatric Medicine | DX: E05.90 Thyrotoxicosis, unspecified without thyrotoxic crisis or storm (principal); R74.8 Abnormal levels of other serum enzymes ==

== ENCOUNTER → 2022-12-28 | Outpatient (CLI) | payer MEDICARE, OTHER, SELFPAY | END | disposition home or self-care (01) | LOC: SL 11:32 | PROVIDERS: PCP Family Medicine Geriatric Medicine; Referring Provider Nurse Practitioner Acute Care; Visit Provider Nurse Practitioner Acute Care | DX: G47.33 Obstructive sleep apnea (adult) (pediatric) (principal); Z46.89 Encounter for fitting and adjustment of other specified devices | CPT/HCPCS: 98960; G0463 ==

== ENCOUNTER → 2023-03-16 | Outpatient (CLI) | payer MEDICARE, OTHER, SELFPAY ==
[2023-03-16 12:00] LABS: Absolute Lymphocyte Count 1.36 X10^3/uL (0.83-4.51); Absolute Neutrophil Count 3.9 X10^3/uL (2.0-7.7); Basophil# 0.02 X10^3/uL; Basophil% 0.3 % (0-1); Eosinophil# 0.09 X10^3/uL; Eosinophils% 1.6 % (0-5); Hematocrit 37.9 % (37-47); Hemoglobin 13.3 g/dL (12.0-15.0); Lymphocyte # 1.36 X10^3/ul (0.83-4.51); Lymphocyte % 23.5 % (19-41); Mean Corp Hgb Conc 35.1 g/dL (32-36); Mean Corpuscular Volume 88.3 fL (81-99); Mean Platelet Vol. 10.8 fl (6.2-12.0); Monocyte# 0.39 X10^3/uL; Monocyte% 6.7 % (0-10); NRBC Flagged by Analyzer 0 % (0-5); Neutrophil # 3.91 X10^3/uL (2.7-7.7); Neutrophil % 67.7 % (47-70); Platelet Count 199 K/mm3 (150-450); RBC Distribution Width CV 14.6 % (11.6-14.6); Red Blood Count 4.29 M/mm3 (4.2-5.4); White Blood Count 5.8 K/mm3 (4.4-11.0)
[2023-03-16 12:26] LABS: Vitamin D,25 Hydroxy 37.9 ng/mL
[2023-03-16 12:31] LABS: ALB/GLOB Ratio 1.2 RATIO (0.9-2.4); AST(SGOT) 18 U/L (15-37); Alanine Aminotransfer ALT/SGPT 27 U/L (13-56); Albumin, Serum 3.4 g/dL (3.2-5.0); Alkaline Phosphatase 144 U/L (45-117); Anion Gap 5 (5-15); BUN 11 mg/dL (7-18); BUN/Creat Ratio 15.5 RATIO (10-20); Calcium,Total 8.1 mg/dL (8.5-10.1); Chloride 112 mmol/L (98-107); Creatinine, Serum 0.71 mg/dL (0.55-1.02); EST Glomerular Filtration Rate 86 mL/min (>60); Est Glom Filt Rate - Afr Amer 103 mL/min (>60); Globulin 2.9 g/dL (2.2-4.2); Glucose 166 mg/dL (74-106); Potassium 3.2 mmol/L (3.5-5.1); Protein, Total 6.3 g/dL (6.4-8.2); Sodium Level 142 mmol/L (136-145); Thyroid Stim Hormone (TSH) 2.25 uIU/mL (0.358-3.74)
== END | disposition home or self-care (01) ==
LOC: POLAB3 09:25
PROVIDERS: PCP Family Medicine Geriatric Medicine; Visit Provider Family Medicine Geriatric Medicine
DX: M10.9 Gout, unspecified (principal); E55.9 Vitamin D deficiency, unspecified; R53.83 Other fatigue
CPT/HCPCS: 36415; 80053; 82306; 84443; 84550; 85025

== ENCOUNTER → 2023-07-18 | Outpatient (CLI) | payer MEDICARE, OTHER, SELFPAY | END | disposition home or self-care (01) | LOC: SL 19:57 | PROVIDERS: PCP Family Medicine Geriatric Medicine; Referring Provider Nurse Practitioner Acute Care; Visit Provider Nurse Practitioner Acute Care | DX: G47.33 Obstructive sleep apnea (adult) (pediatric) (principal) | CPT/HCPCS: 95810 ==

== ENCOUNTER → 2023-07-22 | Outpatient (CLI) | payer MEDICARE, OTHER, SELFPAY | END | disposition home or self-care (01) | PROVIDERS: PCP Family Medicine Geriatric Medicine; Visit Provider Family Medicine Geriatric Medicine | DX: N39.0 Urinary tract infection, site not specified (principal) | CPT/HCPCS: 87086 ==

== ENCOUNTER → 2023-08-02 | Outpatient (CLI) | payer MEDICARE, OTHER, SELFPAY ==
--- NOTE | 2023-08-02 11:04 | RAD_ITS ---
STUDY: X-RAY - LUMBAR SPINE REASON FOR EXAM: Female, 77 years old. Pain. TECHNIQUE: 5 view(s) of the lumbar spine were obtained. COMPARISON: October 2020 FINDINGS: Osteopenia. Normal lumbar lordosis. There is no substantial scoliosis. Stable 3 mm of anterolisthesis of L4 on L5. Diffuse lower thoracic and lumbosacral facet sclerosis. Diffuse intervertebral disc space narrowing with small osteophytes most marked at L2-3 and L3-4, relatively unchanged from prior study. Multiple clips projected over the left upper quadrant. RAD/L/S Spine Min 4 Views IMPRESSION: Osteopenia with relatively stable lower thoracic spondylosis. Electronically Signed: Heri Suh MD at 15:01 EST ,
--- NOTE | 2023-08-02 11:04 | RAD_ITS ---
STUDY: X-RAY - PELVIS AND RIGHT HIP REASON FOR EXAM: Female, 77 years old. Hip pain. TECHNIQUE: 3 views of the pelvis and hip. COMPARISON: None. FINDINGS: There is a non-specific bowel gas pattern. Normal visualized soft tissue structures. Osteopenia. Mild arthrosis of both sacroiliac joints and the symphysis pubis. Mild arthrosis of both hips. RAD/HIP, UNI W/ Pelvis 2-3 Views IMPRESSION: Osteopenia with osteoarthritic changes. No other abnormality. Electronically Signed: Heri Suh MD at 14:24 EST ,
== END | disposition home or self-care (01) ==
LOC: MTRAD 11:03
PROVIDERS: PCP Family Medicine Geriatric Medicine; Referring Provider Clinical Nurse Specialist Adult Health; Visit Provider Clinical Nurse Specialist Adult Health
DX: M16.11 Unilateral primary osteoarthritis, right hip (principal)
CPT/HCPCS: 72110; 73502

== ENCOUNTER → 2023-09-28 | Outpatient (CLI) | payer MEDICARE, OTHER, SELFPAY ==
--- OUTSIDE RECORDS SUMMARY | 2023-09-28 12:00 | XMS RPT_ITS | CCD ---
Author Name Unknown Address [address] [place] [address] Organization [facility] Care Team Providers Care Television Repairman Name Role Phone ADURY, FRANCISCO S Attending Unavailable ADURY, FRANCISCO S Referring Unavailable MARCELA, CEE LUC Primary Care Unavailable ADURY, FRANCISCO S Attending Unavailable ADURY, FRANCISCO S Referring Unavailable MARCELA, CEE LUC Primary Care Unavailable ADURY, FRANCISCO S Attending Unavailable ADURY, FRANCISCO S Referring Unavailable MARCELA, CEE LUC Primary Care Unavailable MARCELA, CEE LUC Attending Unavailable MARCELA, CEE LUC Referring Unavailable ADURY, FRANCISCO S Attending Unavailable ADURY, FRANCISCO S Referring Unavailable MARCELA, CEE LUC Primary Care Unavailable ADURY, FRANCISCO S Attending Unavailable MARCELA, CEE LUC Primary Care Unavailable ADURY, FRANCISCO S Referring Unavailable Pcp, No Primary Care Provider Unavailjohnathan e Marcela Cee A Primary Care Provider Cee Medrano MD Primary Care Provider [phone] MD Kiera Smith MD Primary Care Provider Perfo rmer HUAN-ABHAY, ANEL Unavailable HUAN-ABHAY, ANEL Attending Unavailable MAURICE SMITHHAELA Primary Care Unavailable HUAN-ABHAY, ANEL Attending Unavailable LUIS KIERA Primary Care Unavailable HUAN-ABHAY, ANEL Attending Unavailable LUIS KIERA Primary Care Unavailable Allergies Allergy Classification Reported Allergen(s) Allergy Type Date of Onset Reaction(s) Facility Corticosteroids (2 sources) predniSONE Drug Allergy 7 GI Upset [facility] Work Phone: Latex (2 sources) Latex Substance Allergy 7 Hives [facility] Work Phone: Opioid Agonists (2 sources) Codeine Drug Allergy 7 Hives [facility] Work Phone: (9 sources) Codeine; Translations: [CODEINE] Drug Allergy Angioedema, anaphylaxis [facility] Repository (9 sources) Latex; Translations: [LATEX] Propensity to adverse reactions (disorder) rash [facility] Rep[facility] (1 source) predniSONE; Translations: [PREDNISONE] Drug Allergy [facility] Rep[facility] (2 sources) natural latex rubber; Translations: [Latex, Natural Rubber] Drug allergy (disorder) [facility] (2 sources) natural latex rubber; Translations: [Latex, Natural Rubber] Food Allergy (disorder) [facility] NEGATED: Highlighted row has been ruled out! (2 sources) No IV Contrast Allergy.; Translations: [IV Dye, Iodine Containing] Drug allergy (disorder) [facility] Medications Current Medications Medication Drug Class(es) Dates Sig (Normalized) Sig (Original) ascorbic acid 113 mg / beta carotene 7160 mg / cuprous oxide 0.4 mg / dl-alpha tocopheryl acetate 100 unt / zinc oxide 17.4 mg oral tablet (6 sources) Vitamin C take 2 tablets by mouth every twenty-four hours PreserVision AREDS - 2 tablets Orally Daily Active doxepin hydrochloride 50 mg oral capsule (8 sources) Tricyclic Antidepressant take 1 capsule by mouth once daily at bedtime Doxepin HCl 50 MG take 1 capsule by mouth at bedtime Orally Once a day Active Completed/Discontinued Medications Medication Drug Class(es) Dates Sig (Normalized) Sig (Original) Celebrate Multi-Complete 18 - (6 sources) Celebrate Multi-Complete 18 - as directed Orally Not-Taking CPAP (1 source) Start: 05-21-2016 CPAP Indications: KESHA treated with BiPAP 2 week BIPAP compliance report 1 Device 0 05/21/2016 Active Problems Active Problems Problem Classification Problem Date Documented Da te Episodic/Chronic Abdominal pain (4 sources) Abdominal pain; Translations: [Abdominal Pain] 08-06-2021 Episodic Anxiety disorders (4 sources) Generalized anxiety disorder; Translations: [Generalized anxiety disorder] Onset: 6 05-21-2016 Chronic Aortic; peripheral; and visceral artery aneurysms (2 sources) Aneurysm of splenic artery; Translations: [Aneurysm of other specified arteries] 02-22-2017 Chronic Deficiency and other anemia (5 sources) Anemia, unspecified; Translations: [Anemia, unspecified] Onset: 2 Resolved: 2 Episodic Disorders of lipid metabolism (6 sources) Hyperlipidemia; Translations: [Hyperlipidemia, unspecified] Chronic Diverticulosis and diverticulitis (2 sources) Diverticulosis of colon; Translations: [Diverticulosis of large intestine without perforation or abscess without bleeding] Onset: 7 07-21-2007 Chronic Esophageal disorders (16 sources) Gastroesophageal reflux disease; Translations: [Gastroesophageal Reflux Disease] 08-06-2021 Chronic Genitourinary symptoms and ill-defined conditions (6 sources) Female stress incontinence; Translations: [Stress incontinence (female) (male)] Chronic Heart valve disorders (2 sources) Mitral valve prolapse; Translations: [Nonrheumatic mitral (valve) prolapse] 02-22-2017 Chronic Mood disorders (4 sources) Depressive disorder; Translations: [Major depressive disorder, single episode, unspecified] 02-22-2017 Chronic Nutritional deficiencies (11 sources) Vitamin D deficiency; Translations: [Vitamin D deficiency, unspecified] Onset: 2 Resolved: 2 Chronic Nutritional deficiencies (5 sources) Deficiency of other specified B group vitamins; Translations: [Deficiency of other specified B group vitamins] Onset: 2 Resolved: 2 Episodic Other bone disease and musculoskeletal deformities (2 sources) Disorder of skeletal system; Translations: [Disorder of bone, unspecified] 02-22-2017 Episodic Other endocrine disorders (6 sources) Hyperparathyroidism; Translations: [Hyperparathyroidism, unspecified] Chronic Other gastrointestinal disorders (6 sources) Malabsorption syndrome; Translations: [Intestinal malabsorption, unspecified] Chronic Other gastrointestinal disorders (5 sources) Intestinal malabsorption, unspecified; Translations: [Intestinal malabsorption, unspecified] Onset: 2 Resolved: 2 Chronic Other gastrointestinal disorders (5 sources) Bariatric surgery status; Translations: [Bariatric surgery status] Onset: 2 Resolved: 2 Episodic Other hereditary and degenerative nervous system conditions (2 sources) Restless legs; Translations: [Restless legs syndrome] 02-22-2017 Chronic Other nutritional; endocrine; and metabolic disorders (10 sources) Obesity; Translations: [Obesity] 08-05-2021 Chronic Other nutritional; endocrine; and metabolic disorders (2 sources) Body mass index 25-29 - overweight; Translations: [Overweight] 02-22-2017 Episodic Residual codes; unclassified (14 sources) Obstructive sleep apnea syndrome; Translations: [Obstructive sleep apnea (adult) (pediatric)] Onset: 05-21-2016 Chronic Residual codes; unclassified (2 sources) Periodic limb movement disorder; Translations: [Periodic limb movement disorder] 02-22-2017 Chronic Residual codes; unclassified (6 sources) Sleep apnea; Translations: [Sleep apnea, unspecified] Chronic Residual codes; unclassified (2 sources) Insomnia; Translations: [Insomnia, unspecified] 02-22-2017 Episodic Spondylosis; intervertebral disc disorders; other back problems (2 sources) Degeneration of lumbosacral intervertebral disc; Translations: [Other intervertebral disc degeneration, lumbar region] 02-22-2017 Chronic Past or Other Problems Problem Classification Problem Date Documented Date Episodic/Chronic Neoplasms of unspecified nature or uncertain behavior (2 sources) Neoplasm of uncertain behavior of gastrointestinal tract; Translations: [Neoplasm of uncertain behavior of other specified digestive organs] Onset: 03-10-2012 03-10-2012 Episodic Other and unspecified benign neoplasm (2 sources) Benign neoplasm of colon; Translations: [Benign neoplasm of colon, unspecified] Onset: 07-21-2007 07-21-2007 Episodic Other and unspecified benign neoplasm (2 sources) History of polyp of colon; Translations: [Personal history of colonic polyps] Onset: 01-24-2012 01-24-2012 Episodic Other screening for suspected conditions (not mental disorders or infectious disease) (3 sources) Patient encounter status; Translations: [Encounter for screening for malignant neoplasm of colon] Onset: 06-19-2007 Resolved: 02-05-2022 06-19-2007 Episodic Residual codes; unclassified (2 sources) Insomnia, unspecified Onset: 02-22-2017 Episodic Results Test Name Value Interpretation Reference Range Facil ity Vital Signs Date Time Vital Sign Value Performing Clinician Kim can 08-05-2022 14:45-0500 Body height 162.56 cm ANEL HUAN-ABHAY Other [facility] [employer] Other 08-05-2022 14:45-0500 Body mass index (BMI) [Ratio] 25.92 kg/m2 ANEL HUAN-ABHAY Other [facility] [employer] Other 08-05-2022 14:45-0500 Body weight 68.49 kg ANEL HUAN-ABHAY Other [facility] [employer] Other 08-05-2022 14:45-0500 Diastolic blood pressure 71 mm[Hg] ANEL HUAN-ABHAY Other [facility] [employer] Other 08-05-2022 14:45-0500 Heart rate 77 /min ANEL HUAN-ABHAY Other [facility] [employer] Other 08-05-2022 14:45-0500 Systolic blood pressure 153 mm[Hg] ANEL HUAN-ABHAY Other [facility] [employer] Other 02-05-2022 12:45-0400 Body height 162.56 cm ANEL HUAN-ABHAY Other [facility] [employer] Other 02-05-2022 12:45-0400 Body mass index (BMI) [Ratio] 26.95 kg/m2 ANEL HUAN-ABHAY Other [facility] [employer] Other 02-05-2022 12:45-0400 Body weight 71.22 kg ANEL HUAN-ABHAY Other [facility] [employer] Other 02-05-2022 12:45-0400 Diastolic blood pressure 89 mm[Hg] ANEL HUAN-ABHAY Other [facility] [employer] [facility] Other 02-05-2022 12:45-0400 Heart rate 93 /min ANEL HUAN-ABHAY Other [facility] Other 02-05-2022 12:45-0400 Systolic blood pressure 153 mm[Hg] ANEL HUAN-ABHAY Other [facility] Other 08-07-2021 13:31-0500 Body mass index (BMI) [Ratio] 35.19 kg/m2 MD Kiera Smith MD [facility] 08-07-2021 13:31-0500 Body weight 93 kg MD Kiera Smith MD [facility] Encounters Encounter Date Encounter Type Care Provider Facility Start: 02-16-2023 End: 02-16-2023 ambulatory ANEL HUAN-ABHAY Other [facility] Other Start: 02-16-2023 Telephone encounter ANEL HUAN-ABHAY [facility] Bariatric Surgery [employer] Start: 02-04-2023 End: 02-04-2023 ambulatory ANEL HUAN-ABHAY Other [facility] Other Start: 02-04-2023 Telephone encounter ANEL HUAN-ABHAY [facility] Bariatric Surgery [employer] Start: 08-05-2022 End: 08-05-2022 ambulatory ANEL HUAN-ABHAY Other [facility] [employer] [facility] Other Start: 08-05-2022 Office outpatient vi sit 15 minutes ANEL HUAN-ABHAY [facility] Bariatric Surgery [employer] Start: 07-28-2022 ambulatory Facility:[facility] Start: 07-27-2022 ambulatory ANEL HUAN-ABHAY Facility: UNKNOWN Start: 07-16-2022 End: 07-16-2022 ambulatory ANEL HUAN-ABHAY Other [facility] Other Start: 07-16-2022 Telephone encounter ANEL RO [facility] Bariatric Surgery [employer] Start: 02-05-2022 (EDUC) EDUCATION ANEL HUAN-ABHAY [facility] Bariatric Surgery [employer] Start: 02-05-2022 End: 02-05-2022 ambulatory ANEL HUAN-ABHAY Other [facility] Other Start: 02-05-2022 Office outpatient vi sit 15 minutes ANEL HUAN-ABHAY [facility] Bariatric Surgery [employer] Start: 01-27-2022 ambulatory ANEL HUAN-ABHAY Facility: UNKNOWN Start: 11-04-2021 ambulatory ANEL HUAN-ABHAY Facility: UNKNOWN Start: 05-17-2019 Patient encounter procedure FRANCISCO RUSSELL Facility:[facility] Start: 01-30-2019 End: 01-30-2019 Telephone encounter Paloma Diamond [facility] Procedures Date Procedure Procedure Detail Performing Clinician Start: 08-05-2021 Completed LAPAROSCOP IC ANTON EN Y GASTRIC BYPASS, by Krista Marin, on 08/05/2021 8:35 AM MD Anel Ro MD Start: 03-10-2012 Colonoscopy [facility] Work Phone: Start: 06-04-2002 Mammography [facility] Work Phone: Plan of Treatment Date Care Activity Detail Author Start: 01-11-2022 LIPID SCREEN LIPID SCREEN [facility] Start: 05-06-2021 Influenza vaccination INFLUENZA (Sea son Ended) [facility] Start: 01-12-2020 DIABETES SCREEN DIABETES SCREEN [facility] Start: 03-10-2015 Screening for malign ant neoplasm of colon [facility] Start: 02-20-2013 ADVANCE DIRECTIVE DISCUSSION ADVANCE DIRECTIVE DISCUSSION [facility] Start: 2012 PNEUMOVAX AGE 65 AND OVER WITH 5YR LOOKBACK (#1) PNEUMOVAX AGE 65 AND OVER WITH 5YR LOOKBACK (#1) [facility] Start: 06-04-2003 Mammography MAMMOGRAM [facility] Start: 1997 Screening for malign ant neoplasm of colon [facility] Start: 1997 SHINGRIX VACCINE (1 of 2) NELSON GRIX VACCINE (1 of 2) [facility] Start: 1966 Urine microalbumin profile DTAP,TDAP ,TD (1 - Tdap) [facility] Start: 1965 HEPATITIS C SCREENING HEPATITIS C SC REENING [facility] Start: 1959 Adult depression scr eening assessment DEPRESSION SCREENING [facility] Immunizations Immunization Date Immunization Notes Care Provider Silvino coles 05-13-2021 Influenza - High Dos e (Quad) ANEL HUAN-ABHAY Other [facility] [employer] Other 12-30-2020 COVID-19 (Pfizer) 2 (purple) ANEL HUAN-ABHAY Other [facility] [employer] Other 12-09-2020 COVID-19 (Pfizer) 1 (purple) ANEL HUAN-ABHAY Other [facility] [employer] Other 07-16-2017 AFLURIA [id number], P F, 45 mcg (15 mcg x 3)/0.5 mL syrg Paloma Diamond PSS [facility] 06-08-2011 influenza, seasonal, injectable Boaz Cebul Work Phone: [facility] 07-07-2010 influenza, seasonal, injectable Boaz Cebul Work Phone: [facility] Payers Date Payer Category Payer Unknown FOR LIFE [id number] 2017-Present Indemnity [id number] 2012 Medicare [id number] 2012 Medicare MEDICARE MEDICAR E A AND B [id number] 2012-Present [place] Medicare [id number] 1947 Unknown [id number] [id number] 1945 Unknown [id number] [id number] 1947 Unknown [id number] [id number] 1947 Unknown [id number] [id number] 1947 Unknown [id number] [id number] 1947 Unknown [id number] [id number] 1947 Unknown [id number] [id number] 1947 Unknown [id number] [id number] 1945 Unknown 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) [facility] Start: 1945 Sex Assigned At Not on file [facility] Start: 08-25-2017 End: 02-04-2023 Tobacco smoking status NHIS Former smoker [facility] Start: 05-21-1971 End: 05-21-1976 History of tobacco use Current smoker [facility] Start: 08-25-2017 Cigarettes smoked current (pack per day) - Reported [facility] Start: 08-25-2017 Tobacco use and exposure Never used [facility] Start: 08-25-2017 Alcohol intake Current drinke r of alcohol (finding) [facility] Sex Assigned At Sex Assigned At Bir th [facility] Other Medical Equipment Procedure Code Equipment Code Equipment Origin al Text Equipment Identifier Dates LAPAROSCOPIC ANTON EN Y GASTRIC BYPASS STAPLE, IMPLANTABLE (GDW) LAPAROSCOPIC ANTON EN Y GASTRIC BYPASS [id number] Start: 08-05-2021 End: 08-05-2021 Clinical Notes 02-25-2012 to 08-05-2022 Note Date & Type Note Facility [facility] Other 11-11-2022 Evaluation note* Encounter Date Diagnosis Assessment Notes Treatment Notes Treatment Clinical Notes Jul, Vitamin D deficiency , unspecified (ICD-10 - E55.9) Jul, Anemia, unspecified (ICD-10 - D64.9) Jul, Vitamin B12 deficiency (ICD-10 - E53.8) Jul, Malabsorption (ICD-1 0 - K90.9) Jul, History of bariatric surgery (ICD-10 - Z98.84) [facility] Other 06-03-2022 Evaluation note* Encounter Date Diagnosis Assessment Notes Treatment Notes Treatment Clinical Notes Feb, Vitamin D deficiency, unspecified (ICD-10 - E55.9) Feb, Malabsorption (ICD-10 - K90.9) Reviewed labwork. Discussed importance of lifelong supplementation. Feb, Anemia, unspecified (ICD-10 - D64.9) Feb, Vitamin B12 deficiency (ICD-10 - E53.8) Continue B12 for life. Feb, History of bariatric surgery (ICD-10 - Z98.84) Ivan is doing great with her weight loss. We discussed excercise. I recommended that she do something active for at least 30 minutes at least five days per week. Feb, Elevated liver function tests (ICD-10 - R79.89) Her LFT's are elevated. She does not have a gallbladder. She had recent increase in medication by neurologist. She will obtain right upper quadrant ultrasound and follow up with Dr. Santos for evaluation and treatment. [facility]. Other 12-03-2021 Hospital Discharge instructions Activity on Discharge from 08/07/2021 1:31 PM: * Activity Restrictions : No Strenuous Activity,No Pushing or Pulling,No Bending over,No Sexual Relations,No Heavy Lifting,No Tub Baths,Resume Activity Gradually * Driving : No Driving Until Permitted by Physician,No Driving While on Pain Medication * Stairs : As tolerated * Activity Instructions : No bending, no pushing, no pulling, no twisting, no lifting more than 10 pounds for 6 weeks * Resume Activity Gradually over the Next: Number : 6 * Resume Activity Gradually over the next: : Week(s) * Bathing : No Tub Baths,May Shower * May shower in: : 0 * May shower in: : Day(s) AntePartum Discharge Plan/Instruction from 08/07/2021 1:31 PM: * Activity Instructions : No bending, no pushing, no pulling, no twisting, no lifting more than 10 pounds for 6 weeks * Additional Instructions/Comments : NO straws, gum, jello, milkshakes or icecream Chest Pain/Heart Attack Information from 08/07/2021 1:31 PM: * Has Patient had Chest Pain or an TN during this Visit? : No * It is important to understand risk factors for heart disease : It is important to understand risk factors for heart disease * so you can work with your doctor to help prevent further cardiac : so you can work with your doctorto help prevent further cardiac injury. Floor Space Allocator Discharge Instructions from 08/07/2021 1:37 PM: * Piece Worker Followup : Peter Valdez MD ([id number]) - Pulmonology * Piece Worker Address and Phone : [address] [address] [phone] * Piece Worker Instructions : Please call to schedule appointment if needed. COPD Information from 08/07/2021 1:31 PM: * Does Patient have a problem/diagnosis of COPD? : No Diet Plan/Instructions at Discharge from 08/07/2021 1:31 PM: * Diet Comments : sips of non-carbonated low to no calorie, low to no sugar fluids every 3-5 mnutes with a goal of 6-8 glasses of fluid per day (50 oz minimum). Starting tomorrow evening add one protein shake. In one week, add a second protein shake. ED Discharge Education Evaluation from 08/05/2021 10:00 PM: * Educ Topic #1 : Yes Medication Plan/Information for Discharge from 08/07/2021 1:31 PM: * Discharge Medication : Printed Obstructive Sleep Apnea Information from 08/07/2021 1:31 PM: * You have scored 'High Risk' : for Obstructive Sleep Apnea (KESHA) * Obstructive Sleep Apnea (KESHA) : is a serious medical condition. Complications can include: * Daytime fatigue and sleepiness : . * Sleep Apnea info 3 : The repeated awakenings associated with sleep apnea make normal, restorative sleep impossible, making severe daytime drowsiness, fatigue and irritability likely. * Sleep Apnea info 5 : People with sleep apnea have an increased risk of motor vehicle and workplace accidents. * Sleep Apnea info 4 : You might have difficulty concentrating and find yourself falling asleep at work, while watching TV or even when driving. * Sleep Apnea info 7 : Children and adolescents with sleep apnea might perform poorly in school or have behavior problems. * Sleep Apnea info 6 : You might also feel quick-tempered, campa or depressed. * High blood pressure or heart problems : . * Sleep Apnea info 9 : Sudden drops in blood oxygen levels that occur during sleep apnea increase blood pressure and strain the cardiovascular system. * Sleep Apnea info 10 : Having obstructive sleep apnea increases your risk of high blood pressure (hypertension). * Sleep Apnea info 11 : Obstructive sleep apnea might also increase your risk of recurrent heart attack, stroke and abnormal heartbeats, such as atrial fibrillation. * Sleep Apnea info 12 : If you have heart disease, multiple episodes of low blood oxygen (hypoxia or hypoxemia) can lead to sudden from an irregular heartbeat. * Type 2 diabetes : . * Sleep Apnea info 14 : Having sleep apnea increases your risk of developing insulin resistance and type 2 diabetes. * Metabolic syndrome : . * Sleep Apnea info 16 : This disorder, which includes high blood pressure, abnormal cholesterol levels, high blood sugar and an increased waist circumference, is linked to a higher risk of heart disease. * Complications with medications and surgery : . * Sleep Apnea info 18 : Obstructive sleep apnea is also a concern with certain medications and general anesthesia. * Sleep Apnea info 19 : People with sleep apnea might be more likely to have complications after major surgery because they're prone to breathing problems, especially when sedated and lying on their backs. * Sleep Apnea info 20 : Before you have surgery, tell your doctor about your sleep apnea and how it'sbeing treated. * Eye problems : . * Sleep Apnea info 22 : Some research has found a connection between obstructive sleep apnea and certain eye conditions, such as glaucoma. * Sleep Apnea info 23 : Eye complications can usually be treated. * Liver problems : . * Sleep Apnea info 25 : People with sleep apnea are more likely to have abnormal results on liver function tests, and their livers are more likely to show signs of scarring (nonalcoholic fatty liver disease). * Sleep-deprived partners : . * Sleep Apnea info 27 : Loud snoring can keep anyone who sleeps near you from getting good rest. * Sleep Apnea info 28 : It's not uncommon for a partner to have to go to another room, or even to another floor of the house, to be able to sleep. * Sleep Apnea info 29 : People with KESHA may also complain of memory problems, morning headaches, moodswings or feelings of depression, and need to urinate frequently at night (nocturia) * Sleep Apnea info 30 : Additionally, a study by the [facility] shows that sleep apnea may be tied to increased Alzheimer biomarker in the brain. Patient Transfer Information from 08/07/2021 1:31 PM: * Special Instructions : Face away from a shower, pat dry, do not rub any lotions or moisturizers on incisions Physician Follow-up Plan/Appointments from 08/07/2021 1:37 PM: * Discharge Physician: : Anel Ro MD ([id number]) - Surgery * Follow up with Ordering Physician : 2 * Discharge Physician Specialty : Week(s) * Discharge Physician Phone: : [phone] [address] [phone] * Follow up with PCP in : 2 * Schedule follow up with PCP in: : Week(s) Special Plan/Instructions for Discharge from 08/07/2021 1:31 PM: * Additional Instructions/Comments : NO straws, gum, jello, milkshakes or icecream * Special Instructions : Face away from a shower, pat dry, do not rub any lotions or moisturizers on incisions Stroke/TIA Discharge Information from 08/07/2021 1:31 PM: * Does the Patient Have a Problem/Diagnosis of Stroke this visit? : No Wound Care Instruction for Discharge from 08/07/2021 1:31 PM: * Change Bandage : Keep bandage clean and dry,Do not disturb bandage,Leave wound/incision open to air * Wound Care : Keep bandage clean and dry * Supplies Given : Do not disturb * Special Instructions : Face away from a shower, pat dry, do not rub any lotions or moisturizers on incisions [facility] 12-03-2021 Evaluation + Plan note Assessment and Plan from 08/07/2021 1:28 PM: * Why You Were Here: To have surgery * Brief Discharge Plan: Follow instructions. Sips of noncarbonated low to no calorie, low to no sugarliquids every three minutes for goal of 6-8 glasses of fluid per day. Walk for 2-3 minutes every hour. Use incentive spirometer 10 times per hour while awake. Add one protein shake per day start or Tuesday with goal of 2 shakes per day begin the second week. [facility] 05-28-2019 Miscellaneous Notes* Telephone Encounter - Paloma DiamondPss) - 01/30/2019 1:28 PM EDT We received the order for BIPAP supplies. Insurance is requiring documentation including signed office visit and sleep studies. Thank you, Paloma Diamond Patient Mine Supervisor / [facility] [address], [address] [place] [address]/ [phone] opt #2 [facility] History of Past illness Narrative* Problem Noted Date Resolved Date Severe episode of recurrent major depressive disorder, without psychotic features 05/21/2016 10/15/2016 Insomnia due to mental condition 05/21/2016 01/11/2017 documented as of this encounter (statuses as of 12/24/2020) [facility] History of Past illness Narrative* Problem Noted Date Resolved Date Severe episode of recurrent major depressive disorder, without psychotic features 05/21/2016 10/15/2016 Insomnia due to mental condition 05/21/2016 01/11/2017 documented as of this encounter (statuses as of 01/16/2021) [facility] Miscellaneous Notes* Telephone Encounter - Juan J Holliday - 02/25/2012 11:52 AM EDT changed arrival time [facility] SCHEDULING/PAT * Telephone Encounter - Jenna Levy Ma - 02/25/2012 10:56 AM EDT PLEASE CHANGE C-SCOPE FROM 1000AM TO 0800 WITH 0730 ARRIVAL D/T CANCELLATION. THANKS Jenna Levy Ma * Telephone Encounter - Juan J Holliday - 02/16/2012 9:43 AM EDT Patient scheduled as requested [facility] SCHEDULING/PAT * Telephone Encounter - Zayda Cheney - 02/16/2012 9:05 AM EDT Patient Name:Ivan Alfaro Referring Provider: Ordering provider- Dr.Robert Nieto/ referring provider ARIANA Date and Time of procedure: 03/10/2012 , arriving at 930 AM and for 1000 AM Procedure: Colonoscopy/Go Lytely Diagnosis Code: V12.72 Personal history of colonic polyps Does the patient have any of the following: Diabetes: No Pacemaker: No Does patient need antibiotics? No Zayda Alberto documented in this encounterOhio[facility] HospitalEvaluation noteNo InformationLSt. [facility] Other History general Narrative - Reported* Type Description Date Medical History ACID REFLUX Medical History DEPRESSION Medical History SLEEP APNEA Medical History UTI'S Medical History URINARY INCONTINENCE Medical History OSTEOPENIA Medical History OSTEOARTHRITIS Medical History flat polyps in colon , was recommended partial colon resection, she is reluctant Surgical History KNEE REPLACEMENT R & L 8 Surgical History SHOULDER 1990 Surgical History SPINAL FUSION 2016 Surgical History HYSTERECTOMY 1960 Surgical History BREAST (TUMOR REMOVAL) 1958 Surgical History BREAST (TUMOR REMOVAL) 2000 Surgical History LAPAROSCOPIC ANTON-EN-Y GASTRIC BYPASS (HUAN-ABHAY) [place] Surgical History cholecystectomy [address] [facility] N[facility] Discharge instructions Activity on Discharge from 08/07/2021 1:31 PM: * Activity Restrictions : No Strenuous Activity,No Pushing or Pulling,No Bending over,No Sexual Relations,No Heavy Lifting,No Tub Baths,Resume Activity Gradually * Driving : No Driving Until Permitted by Physician,No Driving While on Pain Medication * Stairs : As tolerated * Activity Instructions : No bending, no pushing, no pulling, no twisting, no lifting more than 10 pounds for 6 weeks * Resume Activity Gradually over the Next: Number : 6 * Resume Activity Gradually over the next: : Week(s) * Bathing : No Tub Baths,May Shower * May shower in: : 0 * May shower in: : Day(s) AntePartum Discharge Plan/Instruction from 08/07/2021 1:31 PM: * Activity Instructions : No bending, no pushing, no pulling, no twisting, no lifting more than 10 pounds for 6 weeks * Additional Instructions/Comments : NO straws, gum, jello, milkshakes or icecream Chest Pain/Heart Attack Information from 08/07/2021 1:31 PM: * Has Patient had Chest Pain or an TN during this Visit? : No * It is important to understand risk factors for heart disease : It is important to understand risk factors for heart disease * so you can work with your doctor to help prevent further cardiac : so you can work with your doctorto help prevent further cardiac injury. Floor Space Allocator Discharge Instructions from 08/07/2021 1:37 PM: * Piece Worker Followup : Peter Valdez MD ([id number]) - Pulmonology * Piece Worker Address and Phone : [phone] [address] [phone] * Piece Worker Instructions : Please call to schedule appointment if needed. COPD Information from 08/07/2021 1:31 PM: * Does Patient have a problem/diagnosis of COPD? : No Diet Plan/Instructions at Discharge from 08/07/2021 1:31 PM: * Diet Comments : sips of non-carbonated low to no calorie, low to no sugar fluids every 3-5 mnutes with a goal of 6-8 glasses of fluid per day (50 oz minimum). Starting tomorrow evening add one protein shake. In one week, add a second protein shake. ED Discharge Education Evaluation from 08/05/2021 10:00 PM: * Educ Topic #1 : Yes Medication Plan/Information for Discharge from 08/07/2021 1:31 PM: * Discharge Medication : Printed Obstructive Sleep Apnea Information from 08/07/2021 1:31 PM: * You have scored 'High Risk' : for Obstructive Sleep Apnea (KESHA) * Obstructive Sleep Apnea (KESHA) : is a serious medical condition. Complications can include: * Daytime fatigue and sleepiness : . * Sleep Apnea info 3 : The repeated awakenings associated with sleep apnea make normal, restorative sleep impossible, making severe daytime drowsiness, fatigue and irritability likely. * Sleep Apnea info 5 : People with sleep apnea have an increased risk of motor vehicle and workplace accidents. * Sleep Apnea info 4 : You might have difficulty concentrating and find yourself falling asleep at work, while watching TV or even when driving. * Sleep Apnea info 7 : Children and adolescents with sleep apnea might perform poorly in school or have behavior problems. * Sleep Apnea info 6 : You might also feel quick-tempered, campa or depressed. * High blood pressure or heart problems : . * Sleep Apnea info 9 : Sudden drops in blood oxygen levels that occur during sleep apnea increase blood pressure and strain the cardiovascular system. * Sleep Apnea info 10 : Having obstructive sleep apnea increases your risk of high blood pressure (hypertension). * Sleep Apnea info 11 : Obstructive sleep apnea might also increase your risk of recurrent heart attack, stroke and abnormal heartbeats, such as atrial fibrillation. * Sleep Apnea info 12 : If you have heart disease, multiple episodes of low blood oxygen (hypoxia or hypoxemia) can lead to sudden from an irregular heartbeat. * Type 2 diabetes : . * Sleep Apnea info 14 : Having sleep apnea increases your risk of developing insulin resistance and type 2 diabetes. * Metabolic syndrome : . * Sleep Apnea info 16 : This disorder, which includes high blood pressure, abnormal cholesterol levels, high blood sugar and an increased waist circumference, is linked to a higher risk of heart disease. * Complications with medications and surgery : . * Sleep Apnea info 18 : Obstructive sleep apnea is also a concern with certain medications and general anesthesia. * Sleep Apnea info 19 : People with sleep apnea might be more likely to have complications after major surgery because they're prone to breathing problems, especially when sedated and lying on their backs. * Sleep Apnea info 20 : Before you have surgery, tell your doctor about your sleep apnea and how it'sbeing treated. * Eye problems : . * Sleep Apnea info 22 : Some research has found a connection between obstructive sleep apnea and certain eye conditions, such as glaucoma. * Sleep Apnea info 23 : Eye complications can usually be treated. * Liver problems : . * Sleep Apnea info 25 : People with sleep apnea are more likely to have abnormal results on liver function tests, and their livers are more likely to show signs of scarring (nonalcoholic fatty liver disease). * Sleep-deprived partners : . * Sleep Apnea info 27 : Loud snoring can keep anyone who sleeps near you from getting good rest. * Sleep Apnea info 28 : It's not uncommon for a partner to have to go to another room, or even to another floor of the house, to be able to sleep. * Sleep Apnea info 29 : People with KESHA may also complain of memory problems, morning headaches, moodswings or feelings of depression, and need to urinate frequently at night (nocturia) * Sleep Apnea info 30 : Additionally, a study by the [facility] shows that sleep apnea may be tied to increased Alzheimer biomarker in the brain. Patient Transfer Information from 08/07/2021 1:31 PM: * Special Instructions : Face away from a shower, pat dry, do not rub any lotions or moisturizers on incisions Physician Follow-up Plan/Appointments from 08/07/2021 1:37 PM: * Discharge Physician: : Anel Ro MD ([id number]) - Surgery * Follow up with Ordering Physician : 2 * Discharge Physician Specialty : Week(s) * Discharge Physician Phone: : [phone] [phone] * Follow up with PCP in : 2 * Schedule follow up with PCP in: : Week(s) Special Plan/Instructions for Discharge from 08/07/2021 1:31 PM: * Additional Instructions/Comments : NO straws, gum, jello, milkshakes or icecream * Special Instructions : Face away from a shower, pat dry, do not rub any lotions or moisturizers on incisions Stroke/TIA Discharge Information from 08/07/2021 1:31 PM: * Does the Patient Have a Problem/Diagnosis of Stroke this visit? : No Wound Care Instruction for Discharge from 08/07/2021 1:31 PM: * Change Bandage : Keep bandage clean and dry,Do not disturb bandage,Leave wound/incision open to air * Wound Care : Keep bandage clean and dry * Supplies Given : Do not disturb * Special Instructions : Face away from a shower, pat dry, do not rub any lotions or moisturizers on incisions S Summary Purpose Family History No Family History Records FoundNo Family History Records FoundNo Family History Records FoundNo Family History Records Found Advance Directives No Advanced Directives Records FoundNo Advanced Directives Records FoundNo Advanced Directives Records FoundNo Advanced Directives Records Found Additional Source Comments INFORMATION SOURCE (unrecogn ized section and content) DATE CREATED AUTHOR AUTHOR'S ORGANIZ ATION 05/17/2019 [facility] DATE CREATED AUTHOR AUTHOR'S ORGANIZ ATION 07/28/2022 [facility] DATE CREATED AUTHOR AUTHOR'S ORGANIZ ATION 08/05/2022 [facility] em Source Comments (unrecognize d section and content) In the event this informatio n is protected by the Federal Confidentiality of Alcohol and Drug Abuse Patient Records regulations: The Federal rules restrict any use of the information to criminally investigate or prosecute any alcohol or drug abuse patient.[facility] Hospital[facility] the event this information is protected by the Federal Confidentiality of Alcohol and Drug Abuse Patient Records regulations: The Federal rules restrict any use of the information to criminally investigate or prosecute any alcohol or drug abuse patient.[facility] Reason for Visit (unrecogniz ed section and content) Reason Onset Date Comments PAP Therapy Follow Up 01/30/2019 Goals (unrecognized section and content) Goals from 08/07/2021 1:31 PM:Goal for Mobility : Maintain active lifestyle as tolerated Patient Stated Goals from 08/07/2021 1:31 PM:Patient's Personal Life Style and Recovery Goal : Go homePatient's Personal Life Style and Recovery Plan : Go home No InformationNo InformationNo InformationNo InformationNo InformationNo Information FOR RECORDS PERTAINING TO PATIENTS WHO ARE OR HAVE BEEN ENROLLED IN A CHEMICAL DEPENDENCY/SUBSTANCEABUSE PROGRAM, SOME INFORMATION MAY BE OMITTED. This clinical summary was aggregated from multiple sources. Caution should be exercised in using it in the provision of clinical care. This summary normalizes information from multiple sources, and as a consequence, information in this document may materially change the coding, format and clinical context of patient data. In addition, data may be omitted in some cases. CLINICAL DECISIONS SHOULD BE BASED ON THE PRIMARY CLINICAL RECORDS. [employer] [facility]. provides no warranty or guarantee of the accuracy or completeness of information in this document.
[2023-09-28 12:44] LABS: Absolute Lymphocyte Count 1.29 X10^3/uL (0.83-4.51); Absolute Neutrophil Count 2.8 X10^3/uL (2.0-7.7); Basophil# 0.03 X10^3/uL; Basophil% 0.6 % (0-1); Eosinophil# 0.08 X10^3/uL; Eosinophils% 1.7 % (0-5); Hematocrit 40.2 % (37-47); Hemoglobin 13.7 g/dL (12.0-15.0); Lymphocyte # 1.29 X10^3/ul (0.83-4.51); Lymphocyte % 27.6 % (19-41); Mean Corp Hgb Conc 34.1 g/dL (32-36); Mean Corpuscular Hgb 30.6 pg (27.0-32.0); Mean Corpuscular Volume 89.7 fL (81-99); Mean Platelet Vol. 10.6 fl (6.2-12.0); Monocyte# 0.41 X10^3/uL; Monocyte% 8.8 % (0-10); NRBC Flagged by Analyzer 0 % (0-5); Neutrophil # 2.84 X10^3/uL (2.7-7.7); Neutrophil % 60.9 % (47-70); Platelet Count 205 K/mm3 (150-450); RBC Distribution Width SD 48.9 fl (35.1-43.9); Red Blood Count 4.48 M/mm3 (4.2-5.4); White Blood Count 4.7 K/mm3 (4.4-11.0)
[2023-09-28 13:01] LABS: Vitamin D,25 Hydroxy 39.4 ng/mL
[2023-09-28 13:54] LABS: ALB/GLOB Ratio 1.4 RATIO (0.9-2.4); AST(SGOT) 25 U/L (15-37); Alanine Aminotransfer ALT/SGPT 41 U/L (13-56); Albumin, Serum 3.8 g/dL (3.2-5.0); Alkaline Phosphatase 123 U/L (45-117); Anion Gap 5 (5-15); BUN 11 mg/dL (7-18); BUN/Creat Ratio 19.5 RATIO (10-20); Calcium,Total 8.8 mg/dL (8.5-10.1); Chloride 111 mmol/L (98-107); Creatinine, Serum 0.56 mg/dL (0.55-1.02); EST Glomerular Filtration Rate 111 mL/min (>60); Est Glom Filt Rate - Afr Amer 134 mL/min (>60); Globulin 2.7 g/dL (2.2-4.2); Glucose 70 mg/dL (74-106); Potassium 3.7 mmol/L (3.5-5.1); Protein, Total 6.5 g/dL (6.4-8.2); Sodium Level 142 mmol/L (136-145); Thyroid Stim Hormone (TSH) 2.67 uIU/mL (0.358-3.74); Uric Acid 4.1 mg/dL (2.6-6.0)
== END | disposition home or self-care (01) ==
LOC: POLAB3 11:35
PROVIDERS: PCP Family Medicine Geriatric Medicine; Visit Provider Family Medicine Geriatric Medicine
DX: E55.9 Vitamin D deficiency, unspecified (principal); M10.9 Gout, unspecified; R53.83 Other fatigue
CPT/HCPCS: 36415; 80053; 82306; 84443; 84550; 85025

== ENCOUNTER → 2024-03-21 | Outpatient (CLI) | payer MEDICARE, OTHER, SELFPAY ==
[2024-03-21 11:59] LABS: Absolute Neutrophil Count 3.8 X10^3/uL (2.0-7.7); Basophil# 0.03 X10^3/uL; Basophil% 0.6 % (0-1); Eosinophil# 0.07 X10^3/uL; Eosinophils% 1.3 % (0-5); Hematocrit 42.9 % (37-47); Hemoglobin 14.7 g/dL (12.0-15.0); Lymphocyte % 20.4 % (19-41); Mean Corp Hgb Conc 34.3 g/dL (32-36); Mean Corpuscular Hgb 30.5 pg (27.0-32.0); Mean Platelet Vol. 10.5 fl (6.2-12.0); Monocyte# 0.43 X10^3/uL; NRBC Flagged by Analyzer 0 % (0-5); Neutrophil # 3.75 X10^3/uL (2.7-7.7); Neutrophil % 69.3 % (47-70); Platelet Count 181 K/mm3 (150-450); RBC Distribution Width CV 14.1 % (11.6-14.6); RBC Distribution Width SD 45.7 fl (35.1-43.9); Red Blood Count 4.82 M/mm3 (4.2-5.4); White Blood Count 5.4 K/mm3 (4.4-11.0)
[2024-03-21 12:19] LABS: PTHIN 92.8 pg/mL (18.4-80.1)
[2024-03-21 12:24] LABS: Vitamin B12 1358 pg/mL (211-911); Vitamin D,25 Hydroxy 37.2 ng/mL
[2024-03-21 12:35] LABS: ALB/GLOB Ratio 1.3 RATIO (0.9-2.4); AST(SGOT) 33 U/L (15-37); Alanine Aminotransfer ALT/SGPT 35 U/L (13-56); Alkaline Phosphatase 132 U/L (45-117); Anion Gap 8 (5-15); BUN 19 mg/dL (7-18); BUN/Creat Ratio 33.1 RATIO (10-20); Calcium,Total 8.6 mg/dL (8.5-10.1); Chloride 106 mmol/L (98-107); Creatinine, Serum 0.57 mg/dL (0.55-1.02); EST Glomerular Filtration Rate 109 mL/min (>60); Est Glom Filt Rate - Afr Amer 131 mL/min (>60); Ferritin 49 ng/mL (8-252); Glucose 86 mg/dL (74-106); Iron 58 ug/dL (50-170); Iron Binding Capacity,Total 263 ug/dL (250-450); PERCENT IRON SATURATION 22.1 % (15.0-55.0); Potassium 4.7 mmol/L (3.5-5.1); Sodium Level 142 mmol/L (136-145)
[2024-03-25 17:07] LABS: Copper, Serum or Plasma 131 ug/dL (80-158); Vitamin B1, Thiamine 189.5 nmol/L (66.5-200.0); Zinc, Plasma or Serum 146 ug/dL (44-115)
== END | disposition home or self-care (01) ==
LOC: LAB 11:10
PROVIDERS: PCP Family Medicine Geriatric Medicine
DX: K90.9 Intestinal malabsorption, unspecified (principal)
CPT/HCPCS: 36415; 80053; 82306; 82525; 82607; 82728; 82746; 83540; 83550; 83970; 84425; 84630; 85025

== ENCOUNTER → 2024-03-28 | Outpatient (CLI) | payer MEDICARE, OTHER, SELFPAY ==
[2024-03-28 12:55] LABS: Absolute Neutrophil Count 2.9 X10^3/uL (2.0-7.7); Basophil# 0.02 X10^3/uL; Basophil% 0.4 % (0-1); Eosinophil# 0.13 X10^3/uL; Eosinophils% 2.6 % (0-5); Hematocrit 42.1 % (37-47); Hemoglobin 14.4 g/dL (12.0-15.0); Lymphocyte % 31.5 % (19-41); Mean Corp Hgb Conc 34.2 g/dL (32-36); Mean Corpuscular Hgb 30.2 pg (27.0-32.0); Mean Corpuscular Volume 88.3 fL (81-99); Monocyte# 0.42 X10^3/uL; Monocyte% 8.3 % (0-10); NRBC Flagged by Analyzer 0 % (0-5); Platelet Count 195 K/mm3 (150-450); RBC Distribution Width SD 45.1 fl (35.1-43.9); Red Blood Count 4.77 M/mm3 (4.2-5.4); White Blood Count 5.1 K/mm3 (4.4-11.0)
[2024-03-28 13:33] LABS: Vitamin D,25 Hydroxy 39.5 ng/mL
[2024-03-28 13:40] LABS: ALB/GLOB Ratio 1.2 RATIO (0.9-2.4); AST(SGOT) 31 U/L (15-37); Alanine Aminotransfer ALT/SGPT 33 U/L (13-56); Albumin, Serum 3.8 g/dL (3.2-5.0); Alkaline Phosphatase 135 U/L (45-117); Anion Gap 5 (5-15); BUN 13 mg/dL (7-18); BUN/Creat Ratio 21.5 RATIO (10-20); Calcium,Total 8.6 mg/dL (8.5-10.1); Chloride 106 mmol/L (98-107); EST Glomerular Filtration Rate 102 mL/min (>60); Est Glom Filt Rate - Afr Amer 124 mL/min (>60); Globulin 3.1 g/dL (2.2-4.2); Glucose 87 mg/dL (74-106); Potassium 4.5 mmol/L (3.5-5.1); Protein, Total 6.9 g/dL (6.4-8.2); Sodium Level 141 mmol/L (136-145); Thyroid Stim Hormone (TSH) 3.15 uIU/mL (0.358-3.74)
== END | disposition home or self-care (01) ==
LOC: LAB 12:24
PROVIDERS: PCP Family Medicine Geriatric Medicine; Referring Provider Family Medicine Geriatric Medicine; Visit Provider Family Medicine Geriatric Medicine
DX: R53.83 Other fatigue (principal); E55.9 Vitamin D deficiency, unspecified
CPT/HCPCS: 36415; 80053; 82306; 84443; 85025

== ENCOUNTER → 2024-05-29 | Outpatient (CLI) | payer MEDICARE, OTHER, SELFPAY ==
--- NOTE | 2024-05-29 15:58 | RAD_ITS ---
EXAM: XR LEFT WRIST COMPLETE, 3 OR MORE VIEWS CLINICAL INDICATION: PAIN TECHNIQUE: Frontal, lateral and oblique views of the left wrist. COMPARISON: Left hand March 25, 2009. FINDINGS: BONES/JOINTS: There is a thin curvilinear collection of hyperdensity dorsal to the proximal carpal row on the lateral view which may be faint periarticular calcification, it is not typical shape of a triquetrum fracture fragment. It measures 6 mm in length by 1 mm thickness. Diffuse demineralization. Mild-moderate degenerative change at the base of the thumb. Both of these findings have significantly increased since 2008. SOFT TISSUES: There is soft tissue swelling at the wrist, best seen on the lateral view. Dorsal and ventral. No radiopaque foreign body. RAD/Wrist min 3 Views IMPRESSION: 1. Interval increased diffuse demineralization and moderate new degenerative changes at the base of the thumb compared to 2009. 2. Soft tissue swelling, dorsal and ventral. 3. Thin curvilinear amorphous line of soft tissue calcification versus atypical triquetral avulsion fracture fragment dorsal to the proximal carpal row on the lateral view. Favored to be chronic soft tissue calcification. New from 2008. Electronically Signed: Beatrice Mederos MD at 21:54 EDT ,
== END | disposition home or self-care (01) ==
LOC: RAD 15:55
PROVIDERS: PCP Family Medicine Geriatric Medicine; Referring Provider Family Medicine Geriatric Medicine; Visit Provider Family Medicine Geriatric Medicine
DX: M25.532 Pain in left wrist (principal)
CPT/HCPCS: 73110

== ENCOUNTER → 2024-05-29 | Outpatient (CLI) | payer MEDICARE, OTHER, SELFPAY ==
[2024-05-29 16:10] LABS: Absolute Lymphocyte Count 1.66 X10^3/uL (0.83-4.51); Basophil# 0.05 X10^3/uL; Basophil% 0.7 % (0-1); Eosinophil# 0.14 X10^3/uL; Eosinophils% 1.9 % (0-5); Hematocrit 38.5 % (37-47); Hemoglobin 13.2 g/dL (12.0-15.0); Lymphocyte # 1.66 X10^3/ul (0.83-4.51); Lymphocyte % 22.3 % (19-41); Mean Corp Hgb Conc 34.3 g/dL (32-36); Mean Corpuscular Hgb 30.4 pg (27.0-32.0); Mean Corpuscular Volume 88.7 fL (81-99); Mean Platelet Vol. 10.4 fl (6.2-12.0); Monocyte# 0.56 X10^3/uL; Monocyte% 7.5 % (0-10); NRBC Flagged by Analyzer 0 % (0-5); Neutrophil # 5.03 X10^3/uL (2.7-7.7); Neutrophil % 67.3 % (47-70); Platelet Count 228 K/mm3 (150-450); RBC Distribution Width CV 14.1 % (11.6-14.6); RBC Distribution Width SD 44.8 fl (35.1-43.9); Red Blood Count 4.34 M/mm3 (4.2-5.4); White Blood Count 7.5 K/mm3 (4.4-11.0)
[2024-05-29 16:30] LABS: ALB/GLOB Ratio 1.2 RATIO (0.9-2.4); AST(SGOT) 25 U/L (15-37); Alanine Aminotransfer ALT/SGPT 48 U/L (13-56); Albumin, Serum 3.8 g/dL (3.2-5.0); Alkaline Phosphatase 132 U/L (45-117); Anion Gap 2 (5-15); BUN 19 mg/dL (7-18); BUN/Creat Ratio 26.1 RATIO (10-20); Calcium,Total 8.9 mg/dL (8.5-10.1); Chloride 106 mmol/L (98-107); Creatinine, Serum 0.73 mg/dL (0.55-1.02); EST Glomerular Filtration Rate 83 mL/min (>60); Est Glom Filt Rate - Afr Amer 100 mL/min (>60); Globulin 3.1 g/dL (2.2-4.2); Glucose 102 mg/dL (74-106); Potassium 4.3 mmol/L (3.5-5.1); Protein, Total 6.9 g/dL (6.4-8.2); Sodium Level 139 mmol/L (136-145); Uric Acid 4.4 mg/dL (2.6-6.0)
[2024-05-29 16:43] LABS: Erythrocyte Sedimentation Rate 1 mm/hr (0-30)
== END | disposition home or self-care (01) ==
LOC: POLAB3 15:53
PROVIDERS: PCP Family Medicine Geriatric Medicine; Visit Provider Family Medicine Geriatric Medicine
DX: I10 Essential (primary) hypertension (principal); M10.9 Gout, unspecified
CPT/HCPCS: 36415; 80053; 84550; 85025; 85652; 86140

== ENCOUNTER → 2024-10-10 | Outpatient (CLI) | payer MEDICARE, OTHER, SELFPAY ==
[2024-10-10 10:20] LABS: Absolute Lymphocyte Count 1.27 X10^3/uL (0.83-4.51); Basophil# 0.03 X10^3/uL; Basophil% 0.6 % (0-1); Eosinophil# 0.11 X10^3/uL; Eosinophils% 2.2 % (0-5); Hematocrit 40.5 % (37-47); Lymphocyte # 1.27 X10^3/ul (0.83-4.51); Lymphocyte % 25.9 % (19-41); Mean Corp Hgb Conc 34.6 g/dL (32-36); Mean Corpuscular Hgb 30.8 pg (27.0-32.0); Mean Platelet Vol. 10.1 fl (6.2-12.0); Monocyte# 0.45 X10^3/uL; Monocyte% 9.2 % (0-10); NRBC Flagged by Analyzer 0 % (0-5); Neutrophil # 3.04 X10^3/uL (2.7-7.7); Neutrophil % 61.9 % (47-70); Platelet Count 186 K/mm3 (150-450); RBC Distribution Width CV 13.8 % (11.6-14.6); RBC Distribution Width SD 44.4 fl (35.1-43.9); Red Blood Count 4.55 M/mm3 (4.2-5.4); White Blood Count 4.9 K/mm3 (4.4-11.0)
[2024-10-10 10:58] LABS: ALB/GLOB Ratio 1.3 RATIO (0.9-2.4); AST(SGOT) 23 U/L (15-37); Alanine Aminotransfer ALT/SGPT 34 U/L (13-56); Albumin, Serum 3.6 g/dL (3.2-5.0); Alkaline Phosphatase 99 U/L (45-117); Anion Gap 5 (5-15); BUN 14 mg/dL (7-18); BUN/Creat Ratio 20.2 RATIO (10-20); Calcium,Total 8.6 mg/dL (8.5-10.1); Chloride 109 mmol/L (98-107); Creatinine, Serum 0.69 mg/dL (0.55-1.02); EST Glomerular Filtration Rate 87 mL/min (>60); Est Glom Filt Rate - Afr Amer 105 mL/min (>60); Globulin 2.8 g/dL (2.2-4.2); Glucose 77 mg/dL (74-106); Potassium 3.6 mmol/L (3.5-5.1); Protein, Total 6.4 g/dL (6.4-8.2); Sodium Level 142 mmol/L (136-145); Uric Acid 3.9 mg/dL (2.6-6.0)
== END | disposition home or self-care (01) ==
LOC: POLAB3 10:09
PROVIDERS: PCP Family Medicine Geriatric Medicine; Visit Provider Family Medicine Geriatric Medicine
DX: I10 Essential (primary) hypertension (principal); E55.9 Vitamin D deficiency, unspecified; M10.9 Gout, unspecified
CPT/HCPCS: 36415; 80053; 82306; 84443; 84550; 85025

== ENCOUNTER → 2025-04-08 | Outpatient (CLI) | payer MEDICARE, OTHER, SELFPAY ==
[2025-04-08 11:16] LABS: Hematocrit 41.2 % (37-47); Hemoglobin 14.3 g/dL (12.0-15.0); Immature Granulocytes Count 0.010 X10^3/uL (0.0-0.0); Mean Corp Hgb Conc 34.7 g/dL (32-36); Mean Corpuscular Volume 89.8 fL (81-99); Mean Platelet Vol. 10.6 fl (6.2-12.0); NRBC Flagged by Analyzer 0 % (0-5); Platelet Count 190 K/mm3 (150-450); RBC Distribution Width CV 13.9 % (11.6-14.6); RBC Distribution Width SD 45.1 fl (35.1-43.9); Red Blood Count 4.59 M/mm3 (4.2-5.4); White Blood Count 6.0 K/mm3 (4.4-11.0)
[2025-04-08 12:09] LABS: AST(SGOT) 38 U/L (<=31); Alanine Aminotransfer ALT/SGPT 41 U/L (<=34); Albumin, Serum 4.3 g/dL (3.4-4.8); Alkaline Phosphatase 126 U/L (35-104); Anion Gap 9 (5-15); BUN 13 mg/dL (4-19); BUN/Creat Ratio 20.8 RATIO (10-20); Calcium,Total 9.2 mg/dL (7.6-11.0); Carbon Dioxide 26.9 mmol/L (21.0-32.0); Chloride 106 mmol/L (98-108); Globulin 2.3 g/dL (2.2-4.2); Glucose 82 mg/dL (70-99); Potassium 4.8 mmol/L (3.3-5.1); Uric Acid 4.2 mg/dL (2.6-6.0); Vitamin D,25 Hydroxy 38.4 ng/mL (30-100)
[2025-04-08 19:03] LABS: Xtra Tube Kwok EXTRA TUBE
== END | disposition home or self-care (01) ==
LOC: POLAB3 11:00
PROVIDERS: PCP Family Medicine Geriatric Medicine; Visit Provider Family Medicine Geriatric Medicine
DX: I10 Essential (primary) hypertension (principal); E55.9 Vitamin D deficiency, unspecified; M10.9 Gout, unspecified
CPT/HCPCS: 36415; 80053; 82306; 84443; 84550; 85025

== ENCOUNTER → 2025-04-10 | Outpatient (CLI) | payer MEDICARE, OTHER, SELFPAY ==
--- NOTE | 2025-04-10 16:52 | CT_ITS ---
PROCEDURE: CTA ABD/PELVIS W/WO CONTRAST 04/10/2025 REASON FOR EXAM: SPLENIC ARTERY ANEURYSM TECHNIQUE: CTA ABD/PELVIS W/WO CONTRAST Multiplanar Sagittal and Coronal images were obtained. CONTRAST: [id number] VOLUME: 100 mL One or more dose reduction techniques were used (e.g., Automated exposure control, adjustment of the mA and/or kV according to patient size, use of iterative reconstruction technique). 3D MIP images. Volume rendered images. The reconstructed images were reviewed on a different workstation by radiologist. RADIATION DOSE SUMMARY: CTDlvol: 9.28 mGy DLP: 487 mGycm COMPARISON: CT scan on 09/24/2022. FINDINGS: Unchanged 1.2 cm calcified splenic aneurysm. Unchanged 1.7 cm simple cyst in the mid lateral portion of the left kidney. Minimal anterolisthesis of L4 on L5, unchanged. Prior cholecystectomy, unchanged. Nonvisualization of the appendix. Unchanged atheromatous plaques of the aorta. Prior hysterectomy, unchanged. Surgical changes of the stomach, unchanged. Diffuse thickening of the stomach suggestive of gastritis. Uncomplicated colonic diverticulosis. Diffuse spondylosis. The visualized lung bases are unremarkable. Normal liver. Normal extrahepatic biliary system. Normal spleen. Normal pancreas. Normal bilateral adrenal glands. Normal size of the right kidney. There is no right renal mass. There are no right renal calculi. There is no right hydronephrosis. Normal visualized right ureter. Normal size of the left kidney. There is no left renal mass. There are no left renal calculi. There is no left hydronephrosis. Normal visualized left ureter. Normal small intestine. There is no demonstrated peritoneal fluid. Normal inferior vena cava. Normal retroperitoneum. Normal urinary bladder. There is no pelvic mass lesion or lymphadenopathy. There is no pelvic fluid. Normal abdominal wall. CT/CTA Abd/Pelvis W/WO Contrast IMPRESSION: Unchanged 1.2 cm calcified splenic aneurysm. Unchanged 1.7 cm simple cyst in the mid lateral portion of the left kidney. Minimal anterolisthesis of L4 on L5, unchanged. Prior cholecystectomy, unchanged. Nonvisualization of the appendix. Unchanged atheromatous plaques of the aorta. Prior hysterectomy, unchanged. Surgical changes of the stomach, unchanged. Diffuse thickening of the stomach suggestive of gastritis. Uncomplicated colonic diverticulosis. Diffuse spondylosis. Reading Location: [facility]
== END | disposition home or self-care (01) ==
LOC: CT 16:49
PROVIDERS: PCP Family Medicine Geriatric Medicine; Referring Provider Surgery Trauma Surgery; Visit Provider Surgery Trauma Surgery
DX: I72.8 Aneurysm of other specified arteries (principal)
CPT/HCPCS: 74174; Q9967

== ENCOUNTER → 2025-06-06 | Outpatient (CLI) | payer MEDICARE, OTHER, SELFPAY ==
--- NOTE | 2025-06-06 11:57 | RAD_ITS ---
PROCEDURE: WRIST MIN 3 VIEWS 06/06/2025 REASON FOR EXAM: WRIST PAIN TECHNIQUE: Procedure Code: RADWR Modality: DX Procedure: WRIST MIN 3 VIEWS Laterality: Right COMPARISON: Available priors FINDINGS: Bones: Decreased bone mineralization. No displaced fracture. Degenerative changes of the basal joint. Joints: Degenerative changes of the STT joint and basal joint. No effusion or fracture seen. Soft tissues: Curvilinear soft tissue calcification dorsal to the carpal bones, stable and likely chronic. Other: Distal radioulnar joint appears normal. There is no soft tissue swelling. RAD/Wrist min 3 Views IMPRESSION: Degenerative changes of the basal joint and STT joint. No acute fracture. Diffuse decreased bone demineralization. Reading Location: [facility]
--- NOTE | 2025-06-06 11:57 | RAD_ITS ---
PROCEDURE: HAND MIN 3 VIEWS 06/06/2025 REASON FOR EXAM: WRIST PAIN TECHNIQUE: Procedure Code: CHESTER Modality: DX Procedure: HAND MIN 3 VIEWS Laterality: Right COMPARISON: None FINDINGS: Decreased bone mineralization. Degenerative changes of the basal joint and STT joint. Degenerative changes of the radiocarpal joint with chondrocalcinosis. No displaced fracture. Degenerative changes are present throughout the distal and proximal interphalangeal joints throughout the fingers. There is no dislocation. RAD/Hand Min 3 Views IMPRESSION: Multifocal osteoarthritic changes involving the distal and proximal interphalan geal joints basal joint and STT joint. Decreased bone mineralization. No acute fracture. Chondrocalcinosis. Reading Location: [facility]
== END | disposition home or self-care (01) ==
LOC: MTRAD 11:55
PROVIDERS: PCP Family Medicine Geriatric Medicine; Referring Provider Anesthesiology Pain Medicine; Visit Provider Anesthesiology Pain Medicine
DX: M25.531 Pain in right wrist (principal)
CPT/HCPCS: 73110; 73130